=== PATIENT | female | born 1970 | race African-American/Black ===

== ENCOUNTER 2020-12-13 08:32 | Emergency (ER) | payer OTHER, SELFPAY ==
--- NOTE | 2020-12-13 09:15 | EDPHYS ---
Physician Documentation [facility] Name: Nimo Kinsey Age: 50 yrs Sex: Female : 1970 Arrival Date: 12/13/2020 Time: 08:33 Bed 27 Private MD: ED Physician Anabela Zarco HPI: 12/13 09:12 This 50 yrs old Black Female presents to ER via Ambulatory with complaints of Numbness ma2 - left side, lightheaded. 09:12 This 50 yrs old Black Female presents to ER via Ambulatory with complaints of left ma2 sided upper and lower back pain and left neck pain . 09:12 Onset: The symptoms/episode began/occurred gradually, 1 day(s) ago. Associated signs ma2 and symptoms: Pertinent negatives: abdominal pain, agitation, ataxia, blurred vision, chest pain, confusion, diaphoresis, diarrhea, lightheadedness. Severity of symptoms: At their worst the symptoms were mild in the emergency department the symptoms have improved. The patient has experienced similar episodes in the past. 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 - Social history:: Smoking status: Patient reports the use of cigarette tobacco products, smokes one-half pack cigarettes per day. - Family history:: not pertinent. ROS: 09:12 Constitutional: Negative for fever, chills, and weight loss. ma2 09:12 All other systems are negative. Exam: 09:12 Constitutional: This is a well developed, well nourished patient who is awake, alert, ma2 and in no acute distress. Head/Face: Normocephalic, atraumatic. Eyes: Pupils equal round and reactive to light, extra-ocular motions intact. Lids and lashes normal. Conjunctiva and sclera are non-icteric and not injected. Cornea within normal limits. Periorbital areas with no swelling, redness, or edema. ENT: Nares patent. No nasal discharge, no septal abnormalities noted. Tympanic membranes are normal and external auditory canals are clear. Oropharynx with no redness, swelling, or masses, exudates, or evidence of obstruction, uvula midline. Mucous membranes moist. Neck: Has left lateral muscle neck tenderness, and strain, otherwise trachea midline, no thyromegaly or masses palpated, and no cervical lymphadenopathy. Supple, full range of motion without nuchal rigidity, or vertebral point tenderness. No Meningismus. Chest/axilla: Normal chest wall appearance and motion. Nontender with no deformity. No lesions are appreciated. Cardiovascular: Regular rate and rhythm with a normal S1 and S2. No gallops, murmurs, or rubs. Normal PMI, no JVD. No pulse deficits. Respiratory: Lungs have equal breath sounds bilaterally, clear to auscultation and percussion. No rales, rhonchi or wheezes noted. No increased work of breathing, no retractions or nasal flaring. Abdomen/GI: Soft, non-tender, with normal bowel sounds. No distension or tympany. No guarding or rebound. No evidence of tenderness throughout. Back: Has left paraspinal muscle strain and tenderness, no spinal tenderness. No costovertebral tenderness. Full range of motion. Skin: Warm, dry with normal turgor. Normal color with no rashes, no lesions, and no evidence of cellulitis. MS/ Extremity: Pulses equal, no cyanosis. Neurovascular intact. Full, normal range of motion. Neuro: Awake and alert, GCS 15, oriented to person, place, time, and situation. Cranial nerves II-XII grossly intact. Motor strength 5/5 in all extremities. Sensory grossly intact. Cerebellar exam normal. Normal gait. 09:15 CT study not indicated or reported. Reason for not performing CT: patient has muscle ma2 sprain Vital Signs: 08:58 BP 137 / 98; Pulse 98; Resp 16; Temp 98.0; Pulse Ox 100% on R/A; Weight 111.13 kg; iw Height 5 ft. 3 in. (160.02 cm); 08:58 Body Mass Index 43.40 (111.13 kg, 160.02 cm) iw MDM: 09:06 Patient medically screened. ma2 09:12 Differential diagnosis: Likely muscle sprain, strain, of neck upper back and lower ma2 back, with point tenderness. Data reviewed: vital signs, nurses notes. Counseling: I had a detailed discussion with the patient and/or guardian regarding: the historical points, exam findings, and any diagnostic results supporting the discharge/admit diagnosis, the presence of at least one elevated blood pressure reading (>120/80) during this emergency department visit, the need for outpatient follow up. Response to treatment: the patient's symptoms have markedly improved after treatment. Administered Medications: 09:44 Drug: Ketorolac 60 mg Route: IM; Site: right gluteus; ss Disposition Summary: 12/13/20 09:15 Discharge Ordered Location: Home ma2 Condition: Stable ma2 Diagnosis - Muscle spasm of back ma2 - Other muscle spasm - left neck ma2 Followup: ma2 - With: Private Physician - When: Tomorrow - Reason: If symptoms return, Continuance of care Discharge Instructions: - Discharge Summary Sheet ma2 - Muscle Cramps and Spasms ma2 - Heat Therapy, [id number] ma2 - Back Injury Prevention ma2 Forms: - Medication Reconciliation Form ma2 - Thank You Letter ma2 - Antibiotic Education ma2 - Prescription Opioid Use ma2 - Work release form eb Prescriptions: - Cyclobenzaprine 10 mg Oral Tablet - take 1 tablet by ORAL route every 8 hours As needed; 30 tablet; Refills: 0, ma2 Product Selection Permitted - Diclofenac Sodium 75 mg Oral Tablet Sustained Release - take 1 tablet by ORAL route 2 times per day; 30 tablet; Refills: 0, Product ma2 Selection Permitted Signatures: Natalie Sierra RN RN Kimmie Leach RN RN ss Alzahri, Mohammad, MD MD ma2
--- NOTE | 2020-12-13 09:15 | ER ---
Nurse's Notes [facility] Name: Nimo Kinsey Age: 50 yrs Sex: Female : 1970 Arrival Date: 12/13/2020 Time: 08:33 Bed 27 Private MD: Diagnosis: Muscle spasm of back;Other muscle spasm-left neck Presentation: 12/13 08:58 Chief complaint: Patient states: got off work at 6 am, laid in bed and got cold and iw then sat up and got dizzy and then her left side got numb, states she feels numbness from back of her neck down her left arm and down left leg , states she has some pain in neck and low back. Coronavirus screen: At this time, the client does not indicate any symptoms associated with coronavirus-19. Ebola Screen: Patient negative for fever greater than or equal to 101.5 degrees Fahrenheit, and additional compatible Ebola Virus Disease symptoms Patient denies exposure to infectious person. Patient denies travel to an Ebola-affected area in the 21 days before illness onset. No symptoms or risks identified at this time. Initial Sepsis Screen: Does the patient meet any 2 criteria? No. Patient's initial sepsis screen is negative. Does the patient have a suspected source of infection? No. Patient's initial sepsis screen is negative. Risk Assessment: Do you want to hurt yourself or someone else? Patient reports no desire to harm self or others. Onset of symptoms was December 13, 2020. 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 - Social history:: Smoking status: Patient reports the use of cigarette tobacco products, smokes one-half pack cigarettes per day. - Family history:: not pertinent. Screenin:45 Abuse screen: Denies threats or abuse. Denies injuries from another. Nutritional ss screening: No deficits noted. Tuberculosis screening: Never had TB. Fall Risk None identified. Vital Signs: 08:58 BP 137 / 98; Pulse 98; Resp 16; Temp 98.0; Pulse Ox 100% on R/A; Weight 111.13 kg; iw Height 5 ft. 3 in. (160.02 cm); 08:58 Body Mass Index 43.40 (111.13 kg, 160.02 cm) ED Course: 08:33 Patient arrived in ED. am2 09:01 Triage completed. iw 09:02 Arm band placed on. iw 09:06 Anabela Zarco MD is Attending Physician. ma2 09:37 Kimmie Leach, RN is Primary Nurse. ss 09:45 Patient has correct armband on for positive identification. Bed in low position. Call ss light in reach. Side rails up X 1. 09:45 No provider procedures requiring assistance completed. Patient did not have IV access ss during this emergency room visit. Administered Medications: 09:44 Drug: Ketorolac 60 mg Route: IM; Site: right gluteus; ss Outcome: 09:15 Discharge ordered by . ma2 10:13 Discharged to home ambulatory. ss 10:13 Condition: good 10:13 Discharge instructions given to patient, Instructed on discharge instructions, follow up and referral plans. medication usage, Demonstrated understanding of instructions, follow-up care, medications, Prescriptions given X 2. 10:13 Patient left the ED. ss Signatures: Natalie Sierra RN RN Kimmie Leach RN RN Marcela Romero am2 Anabela Zarco MD MD ma2
[2020-12-13] MEDS ORDERED: KETOROLAC 30 MG/ML INJ ONE (09:57)
[2020-12-13 10:24] VITALS: BP 137/98; TEMP 98; O2SAT 100
== END 2020-12-13 10:13 | disposition home or self-care (01) ==
LOC: ER 08:32
DX: M62.830 Muscle spasm of back (principal); M62.838 Other muscle spasm; F17.210 Nicotine dependence, cigarettes, uncomplicated; Z91.048 Other nonmedicinal substance allergy status
CPT/HCPCS: 96372; 99283

== ENCOUNTER 2021-06-20 15:26 | Emergency (ER) | payer BC, SELFPAY ==
[2021-06-20 17:46] LABS: SARS-COV-2 RT PCR NEGATIVE (NEGATIVE)
--- NOTE | 2021-06-20 18:15 | EDPHYS ---
Physician Documentation [facility] Name: Nimo Kinsey Age: 50 yrs Sex: Female : 1970 Arrival Date: 06/20/2021 Time: 15:31 Bed 12 Private MD: ISAIAH Physician Deshaun Rowe HPI: 06/20 17:51 This 50 yrs old Black Female presents to ER via Ambulatory with complaints of Cough, pm1 Body Aches. 17:51 The patient or guardian reports cough. Onset: The symptoms/episode began/occurred 2 pm1 day(s) ago. Severity of symptoms: in the emergency department the symptoms are unchanged. Modifying factors: The symptoms are alleviated by Tylenol, ibuprofen. Associated signs and symptoms: Pertinent positives: sore throat, bodyaches, nausea, Pertinent negatives: fever. 17:51 The patient has not experienced similar symptoms in the past. The patient has not pm1 recently seen a physician. 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 - Social history:: Smoking status: Patient reports the use of cigarette tobacco products, smokes one-half pack cigarettes per day. ROS: 17:51 Cardiovascular: Negative for chest pain, palpitations, and edema. pm1 17:51 Back: Negative for injury and pain, MS/Extremity: Negative for injury and deformity, Skin: Negative for injury, rash, and discoloration, Neuro: Negative for headache, weakness, numbness, tingling, and seizure. 17:51 Constitutional: Positive for body aches, Negative for fever, poor PO intake. 17:51 ENT: Positive for sore throat, Negative for ear pain. 17:51 Respiratory: Positive for cough, Negative for shortness of breath, wheezing. 17:51 Abdomen/GI: Positive for nausea, Negative for abdominal pain, vomiting, diarrhea, constipation. 17:51 All other systems are negative. Exam: 17:51 Constitutional: This is a well developed, well nourished patient who is awake, alert, pm1 and in no acute distress. Head/Face: Normocephalic, atraumatic. 17:51 Skin: Warm, dry with normal turgor. Normal color with no rashes, no lesions, and no evidence of cellulitis. MS/ Extremity: Pulses equal, no cyanosis. Neurovascular intact. Full, normal range of motion. 17:51 ENT: Exam is negative for acute changes, Nose: no acute changes, Mouth: no acute changes, Lips: normal, moist, Oral mucosa: normal, pink and intact, moist. 17:51 Cardiovascular: Rate: normal, Rhythm: regular, Pulses: no pulse deficits are appreciated. 17:51 Respiratory: Exam negative for acute changes, respiratory distress, shortness of breath. 17:51 Neuro: Exam negative for acute changes, Orientation: is normal, Mentation: is normal, Motor: is normal, moves all fours. Vital Signs: 16:37 BP 152 / 90; Pulse 94; Resp 20; Temp 98.2; Pulse Ox 100% ; Weight 120.2 kg; Height 5 vg1 ft. 3 in. (160.02 cm); Pain 8/10; 18:36 BP 132 / 77; Pulse 70; Resp 18; Pulse Ox 100% ; ll1 16:37 Body Mass Index 46.94 (120.20 kg, 160.02 cm) vg1 MDM: 17:43 Patient medically screened. pm1 18:14 Data reviewed: vital signs. Data interpreted: Pulse oximetry: on room air is 100 %. pm1 Interpretation: normal. Counseling: I had a detailed discussion with the patient and/or guardian regarding: the historical points, exam findings, and any diagnostic results supporting the discharge/admit diagnosis, lab results, radiology results, the need for outpatient follow up, to return to the emergency department if symptoms worsen or persist or if there are any questions or concerns that arise at home. 06/20 16:43 Order name: COVID-19/FLU A+B (Document "Date of Onset" if Symptomatic); Complete Time: vg1 17:50 06/20 16:43 Order name: Chest Single View XRAY; Complete Time: 18:27 vg1 Administered Medications: No medications were administered Disposition: 06/21 10:35 Co-signature as Attending Physician, Deshaun Rowe MD I agree with the assessment and radhika plan of care. Disposition Summary: 06/20/21 18:15 Discharge Ordered Location: Home pm1 Problem: new pm1 Symptoms: have improved pm1 Condition: Stable pm1 Diagnosis - Cough pm1 Followup: pm1 - With: Emergency Department - When: As needed - Reason: Worsening of condition Followup: pm1 - With: Private Physician - When: 2 - 3 days - Reason: Recheck today's complaints, Continuance of care, Re-evaluation by your physician Discharge Instructions: - Discharge Summary Sheet pm1 - Pharyngitis pm1 - Upper Respiratory Infection, Adult pm1 - COVID-19 pm1 - COVID-19: What Your Test Results Mean - [facility] pm1 - COVID-19 Frequently Asked Questions pm1 - 10 Things You Can Do to Manage Your COVID-19 Symptoms at Home - [facility] pm1 - COVID-19: Quarantine vs. Isolation - [facility] pm1 Forms: - Medication Reconciliation Form pm1 - Thank You Letter pm1 - Antibiotic Education pm1 - Prescription Opioid Use pm1 - Work release form ll1 Prescriptions: - Zithromax Z-Sreedhar 250 mg Oral Tablet - take 1 tablet by ORAL route as directed for 5 days Day 1 - take two (2) tablets pm1 one time. Day 2, 3, 4 , 5 take one (1) tablet once daily.; 6 tablet; Refills: 0, Product Selection Permitted - Guaifenesin AC 10-100 mg/5 mL Oral Liquid - take 10 milliliters by ORAL route every 4 hours As needed; 240 milliliter; pm1 Refills: 0, Product Selection Permitted - Zofran 4 mg Oral Tablet - take 1 tablet by ORAL route every 12 hours As needed; 20 tablet; Refills: 0, pm1 Product Selection Permitted Signatures: Dispatcher [employer] Deshaun Arellano MD MD cha Marinas, Patrick, MID LEVEL PROVIDER MID LEVEL PROVIDER pm1 Cathryn Edmonds, RN RN vg1 Corrections: (The following items were deleted from the chart) 06/20 18:20 18:15 Acute upper respiratory infection, unspecified pm1 pm1
--- NOTE | 2021-06-20 18:15 | ER ---
Nurse's Notes [facility] Name: Nimo Kinsey Age: 50 yrs Sex: Female : 1970 Arrival Date: 06/20/2021 Time: 15:31 Bed 12 Private MD: Diagnosis: Cough Presentation: 06/20 16:37 Chief complaint: Patient states: cough, congestion, headache and body aches x2 days; vg1 states 'covid outbreak at job in [employer]'. Coronavirus screen: Vaccine status: Patient reports receiving the 2nd dose of the covid vaccine. Client denies travel out of the [place] in the last 14 days. Ebola Screen: Patient negative for fever greater than or equal to 101.5 degrees Fahrenheit, and additional compatible Ebola Virus Disease symptoms. Initial Sepsis Screen: Does the patient meet any 2 criteria? No. Patient's initial sepsis screen is negative. Does the patient have a suspected source of infection? No. Patient's initial sepsis screen is negative. Risk Assessment: Do you want to hurt yourself or someone else? Patient reports no desire to harm self or others. Onset of symptoms was June 18, 2021. 16:37 Method Of Arrival: Ambulatory vg1 16:37 Acuity: TIFFANY 4 vg1 Triage Assessment: 16:40 General: Appears uncomfortable, Behavior is calm, cooperative. Pain: Complains of pain vg1 in generalized body. Respiratory: Reports cough that is Airway is patent Respiratory effort is even, unlabored. 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 - Social history:: Smoking status: Patient reports the use of cigarette tobacco products, smokes one-half pack cigarettes per day. Screenin:26 Abuse screen: Denies threats or abuse. Nutritional screening: No deficits noted. ll1 Tuberculosis screening: No symptoms or risk factors identified. Fall Risk Total Powell Fall Scale indicates No Risk (0-24 pts). Assessment: 17:26 Reassessment: No changes from previously documented assessment. Patient and/or family ll1 updated on plan of care and expected duration. Pain level reassessed. Patient is alert, oriented x 3, equal unlabored respirations, skin warm/dry/pink. 18:25 Reassessment: Patient appears in no apparent distress at this time. No changes from ll1 previously documented assessment. Patient and/or family updated on plan of care and expected duration. Pain level reassessed. Patient is alert, oriented x 3, equal unlabored respirations, skin warm/dry/pink. Vital Signs: 16:37 BP 152 / 90; Pulse 94; Resp 20; Temp 98.2; Pulse Ox 100% ; Weight 120.2 kg; Height 5 vg1 ft. 3 in. (160.02 cm); Pain 8/10; 18:36 BP 132 / 77; Pulse 70; Resp 18; Pulse Ox 100% ; ll1 16:37 Body Mass Index 46.94 (120.20 kg, 160.02 cm) vg1 ED Course: 15:31 Patient arrived in ED. ds1 16:40 Triage completed. vg1 16:40 Arm band placed on. vg1 16:45 COVID swab sent to lab. Flu and/or RSV swab sent to lab. vg1 17:18 Cathryn Edmonds, RN is Primary Nurse. vg1 17:18 Patient placed in an exam room, on a stretcher. vg1 17:19 Prabhjot Aguilar NP is PHCP. pm1 17:19 Deshaun Rowe MD is Attending Physician. pm1 17:27 Patient has correct armband on for positive identification. Bed in low position. Call ll1 light in reach. Cardiac monitoring not applicable on this patient. 17:28 Ute Godinez, JANET is Primary Nurse. ll1 17:38 Chest Single View XRAY In Process Unspecified. EDMS 18:37 No provider procedures requiring assistance completed. Patient did not have IV access ll1 during this emergency room visit. Administered Medications: No medications were administered Outcome: 18:15 Discharge ordered by . pm1 18:37 Discharged to home ambulatory. ll1 18:37 Condition: stable 18:37 Discharge instructions given to patient, Instructed on discharge instructions, follow up and referral plans. no drinking with medication, no driving heavy equipment, medication usage, Demonstrated understanding of instructions, follow-up care, medications, Prescriptions given X 3. 18:37 Patient left the ED. ll1 Signatures: Dispatcher [employer] EDNC Lawanda Last ds1 Prabhjot Aguilar NP WIRE REPAIRER [email or web address] Cathryn Edmonds RN RN vg1 Ute Godinez RN RN ll1
--- NOTE | 2021-06-20 18:24 | RAD REPORT ---
EXAM DESCRIPTION: RAD - Chest Single View - 06/20/2021 5:38 pm CLINICAL HISTORY: COUGH COMPARISON: Portable January 2009 TECHNIQUE: AP portable chest image was obtained 06/20/2021 5:38 pm . FINDINGS: Lung volumes are low which accentuates interstitial pattern. Under penetrated portable alejandro hnique and large body habitus further accentuates the lung pattern. No focal consolidation. No defini tive COVID-19 pneumonia findings seen. Interstitial edema and infiltrate are still possible. Heart an d vasculature are normal. No measurable pleural effusion and no pneumothorax. No acute bony abnormali ty seen. No acute aortic findings suspected. IMPRESSION: No focal mass or consolidation. Prominent interstitial pattern is mostly artifact. Mild interstitial edema or infiltrate are not excl uded. No specific chest film findings for COVID-19 pneumonia. Correlation can be made with testing.
[2021-06-20 19:31] VITALS: TEMP 98.2; O2SAT 100
[2021-06-20 19:33] VITALS: BP 132/77
== END 2021-06-20 18:37 | disposition home or self-care (01) ==
LOC: ER 15:26
DX: R05.9 Cough, unspecified (principal); Z20.822 Contact with and (suspected) exposure to COVID-19; F17.210 Nicotine dependence, cigarettes, uncomplicated
CPT/HCPCS: 0240U; 71045

== ENCOUNTER 2021-09-17 10:36 | Emergency (ER) | payer SELFPAY ==
[2021-09-17] MEDS ORDERED: ONDANSETRON 4 MG/2 ML VIAL ONE (11:16)
[2021-09-17] MEDS ORDERED: MORPHINE 4 MG/ML SYR ONE (11:16)
[2021-09-17 11:22] LABS: Absolute Lymphocytes (CBC) 2.1 K/uL (0.7-4.9); MPV 8.1 fL (7.6-11.3); RBC Red Blood Cell Count 4.53 M/uL (3.86-4.86)
[2021-09-17 11:32] LABS: Protime INR 0.97
[2021-09-17 11:44] LABS: Albumin 3.4 g/dL (3.4-5.0); Bilirubin Direct 0.2 mg/dL (0-0.2); Bilirubin Total 0.7 mg/dL (0.2-1.0); Magnesium 1.9 mg/dL (1.8-2.4); Potassium 3.4 mmol/L (3.5-5.1); Protein, Total 7.1 g/dL (6.4-8.2); Troponin High Sensitivity 3.7 pg/mL (<58.9)
[2021-09-17 12:50] LABS: SARS-COV-2 RT PCR NEGATIVE (NEGATIVE)
--- NOTE | 2021-09-17 13:10 | RAD REPORT ---
EXAM DESCRIPTION: Christopher Single View09/17/2021 1:00 pm CLINICAL HISTORY: Chest pain COMPARISON: May 2021 FINDINGS: The lungs appear clear of acute infiltrate. The heart is normal size IMPRESSION: No acute abnormalities displayed
--- NOTE | 2021-09-17 13:11 | RAD REPORT ---
EXAM DESCRIPTION: RAD - C Spine Ap/Lat - 09/17/2021 1:00 pm CLINICAL HISTORY: Neck pain FINDINGS: No fracture or dislocation is seen. Mild spondylosis involves mid and distal cervical spine
[2021-09-17] MEDS ORDERED: KETOROLAC 30 MG/ML INJ ONE (14:09)
[2021-09-17] MEDS ORDERED: DIAZEPAM 10 MG/2 ML INJ SYRINGE ONE (14:09)
--- NOTE | 2021-09-17 14:44 | ER ---
Nurse's Notes [facility] Name: Nimo Kinsey Age: 50 yrs Sex: Female : 1970 Arrival Date: 09/17/2021 Time: 10:41 Bed 27 Private MD: Diagnosis: Strain of muscle and tendon of back wall of thorax;Muscle spasm of back;Chest pain, unspecified Presentation: 09/17 10:53 Chief complaint: Patient states: i dont know if my muscles or nerves but the pain is iw from font of chest to left upper back and down left arm , started 3-4 days ago, denies injury, feels like it's pulling when she turns her neck. Coronavirus screen: At this time, the client does not indicate any symptoms associated with coronavirus-19. Ebola Screen: Patient negative for fever greater than or equal to 101.5 degrees Fahrenheit, and additional compatible Ebola Virus Disease symptoms Patient denies exposure to infectious person. Patient denies travel to an Ebola-affected area in the 21 days before illness onset. No symptoms or risks identified at this time. Initial Sepsis Screen: Does the patient meet any 2 criteria? No. Patient's initial sepsis screen is negative. Does the patient have a suspected source of infection? No. Patient's initial sepsis screen is negative. Risk Assessment: Do you want to hurt yourself or someone else? Patient reports no desire to harm self or others. Onset of symptoms was September 14, 2021. 10:53 Method Of Arrival: Ambulatory iw 10:53 Acuity: TIFFANY 3 iw Triage Assessment: 11:00 General: Appears in no apparent distress. uncomfortable, obese, Behavior is bp cooperative, appropriate for age, anxious. Pain: Complains of pain in chest. EENT: No deficits noted. Neuro: No deficits noted. Cardiovascular: Rhythm is sinus rhythm. Respiratory: No deficits noted. GI: No signs and/or symptoms were reported involving the gastrointestinal system. : No signs and/or symptoms were reported regarding the genitourinary system. Derm: No deficits noted. Musculoskeletal: No deficits noted. Historical: - Allergies: 10:55 Iodine; iw - PMHx: 10:55 graves disease; iw - PSHx: 10:55 section; Tonsillectomy; iw - Immunization history:: Client reports receiving the 2nd dose of the Covid vaccine. - Social history:: Smoking status: Patient reports the use of cigarette tobacco products, Smoking status: Patient reports the use of cigarette tobacco products, smokes one-half pack cigarettes per day. Screenin:00 Abuse screen: Denies threats or abuse. Denies injuries from another. Nutritional bp screening: No deficits noted. Tuberculosis screening: No symptoms or risk factors identified. Fall Risk None identified. Assessment: 11:00 General: SEE TRIAGE NOTE. bp 12:19 Reassessment: No changes from previously documented assessment. Patient and/or family bp updated on plan of care and expected duration. Pain level reassessed. 13:10 Reassessment: No changes from previously documented assessment. Patient and/or family bp updated on plan of care and expected duration. Pain level reassessed. 15:09 Reassessment: PT D/C HOME AMBULATORY WITH FAMILY, DX WITH MUSCLE STRAIN. Pain: Denies bp pain. Vital Signs: 10:53 BP 139 / 99; Pulse 86; Resp 16; Temp 98.2; Pulse Ox 100% on R/A; Weight 113.4 kg; iw Height 5 ft. 3 in. (160.02 cm); Pain 10/10; 11:40 BP 124 / 100; Pulse 84; Resp 19; Pulse Ox 100% on R/A; ab2 12:19 BP 129 / 94; Pulse 77; Resp 16; Pulse Ox 99% ; bp 13:10 BP 117 / 90; Pulse 73; Resp 24; Pulse Ox 97% ; bp 15:09 BP 115 / 88; Pulse 76; Resp 15; Pulse Ox 100% ; bp 10:53 Body Mass Index 44.29 (113.40 kg, 160.02 cm) ED Course: 10:41 Patient arrived in ED. am2 10:55 Triage completed. iw 10:55 Arm band placed on. iw 10:56 Harvey Ac PA is PHCP. [facility] 10:56 Percy Pavon MD is Attending Physician. [facility] 11:00 Patient has correct armband on for positive identification. Bed in low position. Call bp light in reach. Side rails up X2. quality assurance monitor chassis on. Pulse ox on. NIBP on. 11:03 Aaron South, JANET is Primary Nurse. bp 11:13 Inserted saline lock: 20 gauge in left antecubital area, using aseptic technique. Blood tp1 collected. 11:13 EKG done, by ED staff. tp1 13:02 XRAY Chest (1 view) In Process Unspecified. EDMS 13:02 C Spine Ap/Lat XRAY In Process Unspecified. EDMS 14:42 Steve Shields MD is Referral Physician. jmm 15:10 No provider procedures requiring assistance completed. IV discontinued, intact, bp bleeding controlled, No redness/swelling at site. Pressure dressing applied. 15:10 Patient maintains SpO2 saturation greater than 95% on room air. bp Administered Medications: 11:16 Drug: morphine 4 mg Route: IVP; Site: left antecubital; bp 13:01 Follow up: Response: Pain is decreased bp 11:17 Drug: Zofran (Ondansetron) 4 mg Route: IVP; Site: left antecubital; bp 13:01 Follow up: Response: No adverse reaction bp 14:05 Drug: Ketorolac 30 mg Route: IVP; Site: left antecubital; bp 15:11 Follow up: Response: No adverse reaction; Pain is decreased bp 14:05 Drug: Valium (diazepam) 5 mg Route: IVP; Site: left antecubital; bp 15:12 Follow up: Response: No adverse reaction; Pain is decreased bp Outcome: 14:43 Discharge ordered by MD. jmm 15:10 Discharged to home ambulatory, with family. bp 15:10 Condition: stable 15:10 Discharge instructions given to patient, Instructed on discharge instructions, follow up and referral plans. medication usage, Demonstrated understanding of instructions, follow-up care, medications, Prescriptions given X 2. 15:12 Patient left the ED. bp Signatures: Dispatcher [employer] EDMS Harvey Ac PA PA jmNatalie Thurman, RN RN Marcela Olson am2 Aaron South RN RN Sarah Leiva tp1 Jose Martínez
--- NOTE | 2021-09-17 14:44 | EDPHYS ---
Physician Documentation [facility] Name: Nimo Kinsey Age: 50 yrs Sex: Female : 1970 Arrival Date: 09/17/2021 Time: 10:41 Bed 27 Private MD: ED Physician Percy Pavon HPI: 09/17 14:43 This 50 yrs old Black Female presents to ER via Ambulatory with complaints of Chest jmm Pain - radiating to left arm. 14:43 The patient or guardian complains of pain. Onset: The symptoms/episode began/occurred jmm gradually, 3 day(s) ago. This is a 50-year-old female with history of Graves' disease the presents emerged department with complaints of left trapezius pain which radiates into the left arm and the chest. Patient states symptoms began approximately 3 days ago. Denies injury. Denies shortness of breath. Pain is worse when she moves left shoulder. Historical: - Allergies: 10:55 Iodine; iw - PMHx: 10:55 graves disease; iw - PSHx: 10:55 section; Tonsillectomy; iw - Immunization history:: Client reports receiving the 2nd dose of the Covid vaccine. - Social history:: Smoking status: Patient reports the use of cigarette tobacco products, Smoking status: Patient reports the use of cigarette tobacco products, smokes one-half pack cigarettes per day. ROS: 14:43 Respiratory: Negative for shortness of breath, cough, wheezing, and pleuritic chest jmm pain. 14:43 Cardiovascular: Positive for chest pain. 14:43 MS/extremity: Positive for pain. 14:43 All other systems are negative. Exam: 14:43 Constitutional: This is a well developed, well nourished patient who is awake, alert, jmm and in no acute distress. Head/Face: atraumatic. Eyes: EOMI, no conjunctival erythema appreciated ENT: Moist Mucus Membranes Neck: Trachea midline, Supple Chest/axilla: Normal chest wall appearance and motion. 14:43 Cardiovascular: Rate: normal, Rhythm: regular. 14:43 Respiratory: the patient does not display signs of respiratory distress, Respirations: normal, Breath sounds: are clear throughout. 14:43 Back: Left trapezius pain on palpation, mild swelling is appreciated. 14:43 Musculoskeletal/extremity: ROM: intact in all extremities. 14:43 Skin: Appearance: Color: normal in color. 14:43 Neuro: Motor: is normal. 14:43 Psych: Behavior/mood is pleasant, cooperative. Vital Signs: 10:53 BP 139 / 99; Pulse 86; Resp 16; Temp 98.2; Pulse Ox 100% on R/A; Weight 113.4 kg; iw Height 5 ft. 3 in. (160.02 cm); Pain 10/10; 11:40 BP 124 / 100; Pulse 84; Resp 19; Pulse Ox 100% on R/A; ab2 12:19 BP 129 / 94; Pulse 77; Resp 16; Pulse Ox 99% ; bp 13:10 BP 117 / 90; Pulse 73; Resp 24; Pulse Ox 97% ; bp 15:09 BP 115 / 88; Pulse 76; Resp 15; Pulse Ox 100% ; bp 10:53 Body Mass Index 44.29 (113.40 kg, 160.02 cm) iw MDM: 11:07 Patient medically screened. guevara 14:42 Data reviewed: vital signs, nurses notes. Counseling: I had a detailed discussion with indra the patient and/or guardian regarding: the historical points, exam findings, and any diagnostic results supporting the discharge/admit diagnosis, lab results, radiology results, the need for outpatient follow up, to return to the emergency department if symptoms worsen or persist or if there are any questions or concerns that arise at home. 09/17 11:08 Order name: Basic Metabolic Panel; Complete Time: 12:00 [facility] 09/17 11:08 Order name: CBC with Diff; Complete Time: 11:53 [facility] 09/17 11:08 Order name: LFT's; Complete Time: 12:00 [facility] 09/17 11:08 Order name: Magnesium; Complete Time: 12:00 [facility] 09/17 11:08 Order name: NT PRO-BNP; Complete Time: 12:00 [facility] 09/17 11:08 Order name: PT-INR; Complete Time: 11:36 [facility] 09/17 11:08 Order name: Troponin HS; Complete Time: 12:00 [facility] 09/17 11:08 Order name: XRAY Chest (1 view); Complete Time: 13:15 [facility] 09/17 11:15 Order name: C Spine Ap/Lat XRAY; Complete Time: 13:15 [facility] 09/17 11:42 Order name: COVID-19/FLU A+B (Document "Date of Onset" if Symptomatic); Complete Time: iw 13:09/17 11:08 Order name: EKG; Complete Time: 11: [facility] 09/17 11:08 Order name: Cardiac monitoring; Complete Time: 11:10 [facility] 09/17 11:08 Order name: EKG - Nurse/Tech; Complete Time: 11: [facility] 09/17 11:08 Order name: IV Saline Lock; Complete Time: 11: [facility] 09/17 11:08 Order name: Labs collected and sent; Complete Time: 11: [facility] 09/17 11:08 Order name: O2 Per Protocol; Complete Time: : [facility] 09/17 11:08 Order name: O2 Sat Monitoring; Complete Time: 11:10 [facility] Administered Medications: 11:16 Drug: morphine 4 mg Route: IVP; Site: left antecubital; bp 13:01 Follow up: Response: Pain is decreased bp 11:17 Drug: Zofran (Ondansetron) 4 mg Route: IVP; Site: left antecubital; bp 13:01 Follow up: Response: No adverse reaction bp 14:05 Drug: Ketorolac 30 mg Route: IVP; Site: left antecubital; bp 15:11 Follow up: Response: No adverse reaction; Pain is decreased bp 14:05 Drug: Valium (diazepam) 5 mg Route: IVP; Site: left antecubital; bp 15:12 Follow up: Response: No adverse reaction; Pain is decreased bp Disposition Summary: 09/17/21 14:43 Discharge Ordered Location: Home jmm Condition: Stable jmm Diagnosis - Strain of muscle and tendon of back wall of thorax jmm - Muscle spasm of back jmm - Chest pain, unspecified jmm Followup: [facility] - With: Steve Shields MD - When: 2 - 3 days - Reason: Recheck today's complaints, Continuance of care, Re-evaluation by your physician Discharge Instructions: - Discharge Summary Sheet jmm - Nonspecific Chest Pain, Adult jmm - Muscle Cramps and Spasms jmm - Thoracic Strain jmm Forms: - Medication Reconciliation Form jmm - Thank You Letter jmm - Antibiotic Education jmm - Prescription Opioid Use jmm Prescriptions: - Zanaflex 4 mg Oral Tablet - take 1 tablet by ORAL route every 8 hours As needed; 20 tablet; Refills: 0, [facility] Product Selection Permitted - Diclofenac Sodium 75 mg Oral Tablet Sustained Release - take 1 tablet by ORAL route 2 times per day; 30 tablet; Refills: 0, Product [facility] Selection Permitted Addendum: 09/18/2021 15:38 Co-signature as Attending Physician, Percy Pavon MD I agree with the assessment and k plan of care. Signatures: Dispatcher [employer] [facility] Percy Pavon MD MD [facility] Harvey Ac PA PA jmm Williams, Irene, RN RN iw Aaron South RN RN bp
[2021-09-17 16:07] VITALS: TEMP 98.2
[2021-09-17 16:12] VITALS: BP 115/88; O2SAT 100
== END 2021-09-17 15:12 | disposition home or self-care (01) ==
LOC: ER 10:36
DX: S29.012A Strain of muscle and tendon of back wall of thorax, initial encounter (principal); M62.830 Muscle spasm of back; F17.210 Nicotine dependence, cigarettes, uncomplicated; Z20.822 Contact with and (suspected) exposure to COVID-19; Z91.048 Other nonmedicinal substance allergy status
CPT/HCPCS: 0240U; 36415; 71045; 72040; 80048; 80076; 83735; 83880; 84484; 85025; 85610; 93005; 96374; 96375; 99285; J2405; J3360

== ENCOUNTER 2022-02-20 10:30 | Emergency (ER) | payer SELFPAY ==
[2022-02-20] MEDS ORDERED: dexAMETHasone 10 MG/ML VIAL ONE (11:43)
--- NOTE | 2022-02-20 12:23 | EDPHYS ---
Physician Documentation [facility] Name: Nimo Kinsey Age: 51 yrs Sex: Female : 1970 Arrival Date: 02/20/2022 Time: 10:41 Bed 11 Private MD: Deshaun Zambrano HPI: 02/20 10:48 This 51 yrs old Black Female presents to ER via Ambulatory with complaints of jmm bodyaches, Congestion, Shortness Of Breath. 10:48 The patient or guardian reports cough. Onset: The symptoms/episode began/occurred jmm gradually, 3 day(s) ago. Modifying factors: The symptoms are alleviated by nothing. the symptoms are aggravated by nothing. Associated signs and symptoms: Pertinent positives: sore throat. It is unknown whether or not the patient has had similar symptoms in the past. 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 - Social history:: Smoking status: Patient reports the use of cigarette tobacco products, smokes one pack cigarettes per day. ROS: 10:48 Constitutional: Positive for body aches, chills. jmm 10:48 ENT: Positive for sore throat. 10:48 Respiratory: Positive for cough. 10:48 All other systems are negative. Exam: 10:48 Constitutional: This is a well developed, well nourished patient who is awake, alert, jmm and in no acute distress. Head/Face: atraumatic. Eyes: EOMI, no conjunctival erythema appreciated 10:48 Neck: Trachea midline, Supple Chest/axilla: Normal chest wall appearance and motion. Cardiovascular: Regular rate and rhythm. No edema appreciated Respiratory: Normal respirations, no respiratory distress appreciated Abdomen/GI: Non distended Back: Normal ROM Skin: General appearance color normal MS/ Extremity: Moves all extremities, no obvious deformities appreciated, no edema noted to the lower extremities Neuro: Awake and alert Psych: Behavior is normal, Mood is normal, Patient is cooperative and pleasant 10:48 ENT: Posterior pharynx: erythema, that is moderate. Vital Signs: 10:46 BP 148 / 95; Pulse 71; Resp 17; Temp 98.2; Pulse Ox 99% ; Weight 129.27 kg; Height 5 [facility] ft. 3 in. (160.02 cm); Pain 7/10; 12:43 BP 154 / 88; Pulse 77; Resp 16; Pulse Ox 99% on R/A; tp1 10:46 Body Mass Index 50.48 (129.27 kg, 160.02 cm) [facility] MDM: 11:02 Patient medically screened. [facility] 12:21 Data reviewed: vital signs, nurses notes. Counseling: I had a detailed discussion with indra the patient and/or guardian regarding: the historical points, exam findings, and any diagnostic results supporting the discharge/admit diagnosis, lab results, the need for outpatient follow up, to return to the emergency department if symptoms worsen or persist or if there are any questions or concerns that arise at home. ED course: Patient is alert nontoxic in appearance NAD. No signs respiratory distress. Patient advised follow-up PCP and otherwise given strict return precautions. Patient understood agrees plan of care.. 02/20 10:47 Order name: Influenza Screen (a \\T\\ B) [facility] 02/20 10:47 Order name: Strep [facility] 02/20 10:47 Order name: SARS-COV-2 RT PCR (Document "Date of Onset" if Symptomatic) [facility] 02/20 11:32 Order name: Influenza Screen (A ; Complete Time: 11:34 [facility] 02/20 11:33 Order name: Group A Streptococcus Rapid Sc; Complete Time: 11:34 [facility] 02/20 11:38 Order name: SARS-COV-2 RT PCR; Complete Time: 11:46 EDMS Administered Medications: 11:47 Drug: Decadron (dexamethasone) 10 mg Route: IM; Site: left deltoid; jl7 Disposition Summary: 02/20/22 12:23 Discharge Ordered Location: Home [facility] Condition: Stable guevara Diagnosis - Acute pharyngitis, unspecified guevara Followup: indra - With: Private Physician - When: 2 - 3 days - Reason: Recheck today's complaints, Continuance of care, Re-evaluation by your physician Discharge Instructions: - Discharge Summary Sheet indra - Pharyngitis [facility] Forms: - Medication Reconciliation Form jmm - Thank You Letter jmm - Antibiotic Education jmm - Prescription Opioid Use jmm - Work release form tp1 Prescriptions: - cefdinir 300 mg Oral capsule - take 1 capsule by ORAL route every 12 hours for 10 days; 20 capsule; Refills: jmm 0, Product Selection Permitted - albuterol sulfate 90 mcg/actuation Inhalation HFA aerosol inhaler - inhale 2 puff by INHALATION route every 4-6 hours; 1 Pump; Refills: 0, Product jm Selection Permitted Signatures: Dispatcher [employer] Harvey Peraza PA PA jmm Leal, Jahala, RN RN jl7
--- NOTE | 2022-02-20 12:23 | ER ---
Nurse's Notes [facility] Name: Nimo Kinsey Age: 51 yrs Sex: Female : 1970 Arrival Date: 02/20/2022 Time: 10:41 Bed 11 Private MD: Diagnosis: Acute pharyngitis, unspecified Presentation: 02/20 10:46 Chief complaint: Patient states: Cough, severe sore throat, body aches, nasal jl7 congestion x 1.5 weeks, denies fever, denies N/V/D. Coronavirus screen: Vaccine status: Patient reports receiving the 2nd dose of the covid vaccine. congestion, cough unrelated to allergies, headache, runny nose, sore throat, Client presents with at least one sign or symptom that may indicate coronavirus-19. Standard/surgical mask placed on the client. Provider contacted for isolation considerations. Ebola Screen: No symptoms or risks identified at this time. Initial Sepsis Screen: Does the patient meet any 2 criteria? No. Patient's initial sepsis screen is negative. Does the patient have a suspected source of infection? No. Patient's initial sepsis screen is negative. Risk Assessment: Do you want to hurt yourself or someone else? Patient reports no desire to harm self or others. Onset of symptoms was February 08, 2022. 10:46 Method Of Arrival: Ambulatory jl7 10:46 Acuity: TIFFANY 4 jl7 Triage Assessment: 10:49 General: Appears in no apparent distress. uncomfortable, Behavior is calm, cooperative, jl7 appropriate for age. Pain: Complains of pain in throat Pain currently is 7 out of 10 on a pain scale. Respiratory: Reports cough that is dry, persistent Airway is patent Respiratory effort is even, unlabored, Respiratory pattern is regular, symmetrical, not auscultated in triage. 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 - Social history:: Smoking status: Patient reports the use of cigarette tobacco products, smokes one pack cigarettes per day. Vital Signs: 10:46 BP 148 / 95; Pulse 71; Resp 17; Temp 98.2; Pulse Ox 99% ; Weight 129.27 kg; Height 5 jl7 ft. 3 in. (160.02 cm); Pain 7/10; 12:43 BP 154 / 88; Pulse 77; Resp 16; Pulse Ox 99% on R/A; tp1 10:46 Body Mass Index 50.48 (129.27 kg, 160.02 cm) 7 ED Course: 10:41 Patient arrived in ED. am2 10:45 Harvey Ac PA is PHCP. [facility] 10:45 Deshaun Rowe MD is Attending Physician. [facility] 10:49 Triage completed. jl7 10:49 Arm band placed on right wrist. jl7 11:33 Te Gale, RN is Primary Nurse. jl7 12:46 No provider procedures requiring assistance completed. Patient did not have IV access tp1 during this emergency room visit. Administered Medications: 11:47 Drug: Decadron (dexamethasone) 10 mg Route: IM; Site: left deltoid; jl7 Medication: 12:46 VIS not applicable for this client. tp1 Outcome: 12:23 Discharge ordered by . [facility] 12:45 Discharged to tp1 12:45 Condition: good 12:45 Discharge instructions given to patient, Instructed on discharge instructions, follow up and referral plans. medication usage, Demonstrated understanding of instructions, follow-up care, medications, Prescriptions given X 2. 12:46 Patient left the ED. tp1 Signatures: Harvey Ac PA PA jmm Leal, Jahala, JANET RN jl7 Marcela Romero am2 Sarah Terrell RN RN tp1
[2022-02-20 12:59] VITALS: TEMP 98.2; O2SAT 99
[2022-02-20 13:00] VITALS: BP 154/88
== END 2022-02-20 12:46 | disposition home or self-care (01) ==
LOC: ER 10:30
DX: J02.9 Acute pharyngitis, unspecified (principal); E05.00 Thyrotoxicosis with diffuse goiter without thyrotoxic crisis or storm; F17.210 Nicotine dependence, cigarettes, uncomplicated; Z91.041 Radiographic dye allergy status; Z20.822 Contact with and (suspected) exposure to COVID-19
CPT/HCPCS: 87070; 87081; 87804; 96372; 99283; J1100; U0003

== ENCOUNTER 2022-04-12 15:21 | Emergency (ER) | payer OTHER ==
[2022-04-12] MEDS ORDERED: IBUPROFEN 400 MG TAB ONE (15:47)
[2022-04-12] MEDS ORDERED: ACETAMINOPHEN 500 MG TAB ONE (15:47)
--- NOTE | 2022-04-12 16:27 | RAD REPORT ---
EXAM DESCRIPTION: US - Extremity Venous Uni Ltd - 04/12/2022 4:20 pm CLINICAL HISTORY: Pain COMPARISON: None. TECHNIQUE: Real-time sonographic evaluation of the left lower extremity deep venous system was perfo rmed. FINDINGS: Normal compressibility, flow augmentation, phasic flow and spontaneous flow is identified in the left lower extremity deep venous system. No intraluminal filling defects seen. IMPRESSION: No DVT in the left lower extremity.
--- NOTE | 2022-04-12 17:53 | RAD REPORT ---
EXAM DESCRIPTION: RAD - Knee Left 3 View - 04/12/2022 5:22 pm CLINICAL HISTORY: PAIN COMPARISON: No comparisons FINDINGS/IMPRESSION: No acute fracture. No malalignment. Mild medial compartment narrowing. Minimal patellofemoral compartment spurring.
--- NOTE | 2022-04-12 18:04 | ER ---
Nurse's Notes [facility] Name: Nimo Kinsey Age: 51 yrs Sex: Female : 1970 Arrival Date: 04/12/2022 Time: 15:25 Bed 12 Private MD: Diagnosis: Pain in left knee;Unspecified acute conjunctivitis, bilateral Presentation: 04/12 15:35 Chief complaint: Patient states: Left knee pain X 1 month - denies injury. Woke up with ld1 pink eye in both eyes. Coronavirus screen: At this time, the client does not indicate any symptoms associated with coronavirus-19. Ebola Screen: No symptoms or risks identified at this time. Initial Sepsis Screen: Does the patient meet any 2 criteria? No. Patient's initial sepsis screen is negative. Does the patient have a suspected source of infection? No. Patient's initial sepsis screen is negative. Risk Assessment: Do you want to hurt yourself or someone else? Patient reports no desire to harm self or others. Onset of symptoms was April 12, 2022. 15:35 Method Of Arrival: Ambulatory ld1 15:35 Acuity: TIFFANY 4 ld1 Triage Assessment: 15:36 General: Appears in no apparent distress. comfortable, Behavior is calm, cooperative, ld1 appropriate for age. Pain: Complains of pain in left knee Pain does not radiate. Pain currently is 8 out of 10 on a pain scale. Quality of pain is described as throbbing, Pain began 1 day ago. EENT: No signs and/or symptoms were reported regarding the EENT system. EENT: Reports pain in right eye and left eye. Neuro: Level of Consciousness is awake, alert, obeys commands, Oriented to person, place, time, situation. Cardiovascular: Capillary refill < 3 seconds Patient's skin is warm and dry. Respiratory: Airway is patent Respiratory effort is even, unlabored. GI: Abdomen is round non-distended. : No signs and/or symptoms were reported regarding the genitourinary system. Derm: No signs and/or symptoms reported regarding the dermatologic system. Musculoskeletal: No signs and/or symptoms reported regarding the musculoskeletal system. 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 - Social history:: Smoking status: Patient reports the use of cigarette tobacco products, smokes one-half pack cigarettes per day, Patient/guardian denies using alcohol. Screenin:40 Abuse screen: Denies threats or abuse. Denies injuries from another. Nutritional kb3 screening: No deficits noted. Tuberculosis screening: No symptoms or risk factors identified. Fall Risk None identified. Assessment: 15:40 Reassessment: Patient appears in no apparent distress at this time. General: Appears in kb3 no apparent distress. Behavior is calm, cooperative, Re[facility] care of pt [facility]. Pt reports left knee pain x1 month without injury. Also reporting bilateral eye pain, burning, excessive tearing, itching.. Pain: Complains of pain in left knee Pain does not radiate. Pain currently is 7 out of 10 on a pain scale. Quality of pain is described as aching, Pain began 1 month. EENT: Eyes are tearing on right eye and left eye Sclera/Cornea are reddened in right eye and left eye. Vital Signs: 15:35 Weight 120.2 kg; Height 5 ft. 3 in. (160.02 cm); Pain 8/10; ld1 15:40 BP 162 / 107; Pulse 90; Resp 20; Temp 97.6; Pulse Ox 100% ; Pain 7/10; kb3 18:45 BP 158 / 95; Pulse 88; Resp 20; Pulse Ox 99% ; kb3 15:35 Body Mass Index 46.94 (120.20 kg, 160.02 cm) ld1 Visual Acuity: 17:37 Left Eye Visual acuity 20/25, Pupil size 4 mm, Normal, Brisk; Right Eye Visual acuity kb3 20/20, Pupil size 4 mm, Normal, Brisk; Both Eyes Visual acuity 20/15; With Lenses; ED Course: 15:25 Patient arrived in ED. rg4 15:31 Deshaun Perez PA is PHCP. cp 15:31 Chi Thompson MD is Attending Physician. cp 15:33 Stephany Rodriguez RN is Primary Nurse. kb3 15:36 Triage completed. ld1 15:36 Arm band placed on right wrist. ld1 15:40 Patient has correct armband on for positive identification. Bed in low position. Call kb3 light in reach. 15:40 No provider procedures requiring assistance completed. Patient did not have IV access kb3 during this emergency room visit. 16:22 US Extremity Venous Unilateral Ltd In Process Unspecified. EDMS 17:24 XRAY Knee LEFT 3 view In Process Unspecified. EDMS 18:03 Donald Angelo MD is Referral Physician. cp Administered Medications: 15:48 Drug: Ibuprofen 800 mg Route: PO; kb3 17:00 Follow up: Response: No adverse reaction; Pain is decreased kb3 15:48 Drug: Tylenol 1000 mg Route: PO; kb3 17:00 Follow up: Response: No adverse reaction; Pain is decreased kb3 18:20 Drug: Gentamicin Drops 0.3 % 1 drops Route: Ophthalmic; Site: both eyes; kb3 18:30 Follow up: Response: No adverse reaction kb3 Medication: 15:40 VIS not applicable for this client. kb3 Outcome: 18:04 Discharge ordered by . cp 18:49 Discharged to home ambulatory. kb3 18:49 Condition: stable 18:49 Discharge instructions given to patient, Instructed on discharge instructions, follow up and referral plans. medication usage, Demonstrated understanding of instructions, follow-up care, medications, Prescriptions given X 2. 18:50 Patient left the ED. kb3 Signatures: Dispatcher [employer] EDCT Deshaun Perez PA PA cp Garcia, Rubi rg4 Nery Melgoza RN RN ld1 Stephany Rodriguez RN RN kb3
--- NOTE | 2022-04-12 18:04 | EDPHYS ---
Physician Documentation [facility] Name: Nimo Kinsey Age: 51 yrs Sex: Female : 1970 Arrival Date: 04/12/2022 Time: 15:25 Bed 12 Private MD: ED Physician Chi Thompson HPI: 04/12 15:50 This 51 yrs old Black Female presents to ER via Ambulatory with complaints of Knee cp Pain, Redness of Eye. 15:50 The patient presents with pain, that is acute. cp 15:50 The complaints affect the left knee. Context: resulted from an unknown cause, the cp patient can fully bear weight, the patient is able to ambulate, with moderate difficulty, Problem is a result from a previous injury: No. Onset: The symptoms/episode began/occurred 1 month(s) ago. Modifying factors: the symptoms are aggravated by weight bearing, bending knee. Associated signs and symptoms: Pertinent positives: calf tenderness, swelling, radiating pain above knee and pain to back of knee, Pertinent negatives fever, warmth. Patient also c/o bilateral eye redness and drainage since this morning. C/o feeling of "grit" in eyes. 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 - Social history:: Smoking status: Patient reports the use of cigarette tobacco products, smokes one-half pack cigarettes per day, Patient/guardian denies using alcohol. ROS: 15:55 Constitutional: Negative for body aches, chills, fever, poor PO intake. cp 15:55 Eyes: Positive for discharge, pain, redness, Negative for injury or acute deformity. cp 15:55 ENT: Negative for drainage from ear(s), ear pain, sore throat, difficulty swallowing, difficulty handling secretions. 15:55 Cardiovascular: Negative for chest pain, palpitations. 15:55 Respiratory: Negative for cough, shortness of breath, wheezing. 15:55 Abdomen/GI: Negative for abdominal pain, nausea, vomiting, and diarrhea. 15:55 MS/extremity: Positive for pain, swelling, tenderness, of the left knee, Negative for injury or acute deformity. 15:55 Skin: Negative for cellulitis, rash. 15:55 Neuro: Negative for altered mental status, headache, weakness. 15:55 All other systems are negative. Exam: 16:00 Constitutional: The patient appears in no acute distress, alert, awake, non-toxic, well cp developed, well nourished, obese. 16:00 Head/Face: Normocephalic, atraumatic. cp 16:00 Eyes: Periorbital structures: appear normal, Pupils: equal, round, and reactive to light and accomodation, Extraocular movements: intact throughout, Conjunctiva: injected, bilaterally, Sclera: no appreciated abnormality, Lids and lashes: appear normal, bilaterally. 16:00 ENT: External ear(s): are unremarkable, Ear canal(s): are normal, clear, TM's: dullness, bilaterally, Nose: is normal, Mouth: Lips: moist, Oral mucosa: pink and intact, moist, Posterior pharynx: Airway: no evidence of obstruction, patent. 16:00 Neck: ROM/movement: is normal, is supple, without pain, no range of motions limitations. 16:00 Chest/axilla: Inspection: normal. 16:00 Cardiovascular: Rate: normal. 16:00 Respiratory: the patient does not display signs of respiratory distress, Respirations: normal, no use of accessory muscles, no retractions. 16:00 Musculoskeletal/extremity: Extremities: grossly normal except: noted in the left knee: pain, swelling, tenderness, There is no evidence of decreased ROM, ROM: limited passive range of motion due to pain, in the left knee, Perfusion: the extremity is normally perfused throughout, tenderness noted to lateral collateral ligament with mild pain with Varus stress, no laxity and/or instability noted with varus and valgus stressing, anterior and posterior draw negative. 16:00 Skin: cellulitis, is not appreciated, no rash present. Vital Signs: 15:35 Weight 120.2 kg; Height 5 ft. 3 in. (160.02 cm); Pain 8/10; ld1 15:40 BP 162 / 107; Pulse 90; Resp 20; Temp 97.6; Pulse Ox 100% ; Pain 7/10; kb3 18:45 BP 158 / 95; Pulse 88; Resp 20; Pulse Ox 99% ; kb3 15:35 Body Mass Index 46.94 (120.20 kg, 160.02 cm) ld1 Visual Acuity: 17:37 Left Eye Visual acuity 20/25, Pupil size 4 mm, Normal, Brisk; Right Eye Visual acuity kb3 20/20, Pupil size 4 mm, Normal, Brisk; Both Eyes Visual acuity 20/15; With Lenses; Procedures: 18:20 Splinting: Splint applied to left knee using knee immobilizer, applied by nurse. cp Examined by me, post splint application: neurovascular intact, Patient tolerated well. MDM: 15:33 Patient medically screened. cp 16:00 Differential diagnosis: closed fracture, tendonitis, DVT, septic joint. cp 18:04 Data reviewed: vital signs, nurses notes, radiologic studies, plain films, ultrasound. cp 18:04 Counseling: I had a detailed discussion with the patient and/or guardian regarding: the cp historical points, exam findings, and any diagnostic results supporting the discharge/admit diagnosis, radiology results, the need for outpatient follow up, a orthopedic surgeon, to return to the emergency department if symptoms worsen or persist or if there are any questions or concerns that arise at home. Response to treatment: the patient's symptoms have mildly improved after treatment, and as a result, I will discharge patient. 18:04 Test interpretation: by ED physician or midlevel provider: plain radiologic studies. 04/12 15:45 Order name: XRAY Knee LEFT 3 view; Complete Time: 17:59 04/12 18:00 Interpretation: Report reviewed. 04/12 15:45 Order name: US Extremity Venous Unilateral Ltd; Complete Time: 16:58 04/12 16:58 Interpretation: Report reviewed. 04/12 15:45 Order name: Visual Acuity; Complete Time: 17:37 cp 04/12 18:00 Order name: Crutches; Complete Time: 18:16 cp 04/12 18:00 Order name: Keenan wrap-joint; Complete Time: 18:16 cp Administered Medications: 15:48 Drug: Ibuprofen 800 mg Route: PO; kb3 17:00 Follow up: Response: No adverse reaction; Pain is decreased kb3 15:48 Drug: Tylenol 1000 mg Route: PO; kb3 17:00 Follow up: Response: No adverse reaction; Pain is decreased kb3 18:20 Drug: Gentamicin Drops 0.3 % 1 drops Route: Ophthalmic; Site: both eyes; kb3 18:30 Follow up: Response: No adverse reaction kb3 Disposition: 04/13 11:08 Co-signature as Attending Physician, Chi Thompson MD I agree with the assessment and rt plan of care. Disposition Summary: 04/12/22 18:04 Discharge Ordered Location: Home cp Problem: new cp Symptoms: have improved cp Condition: Stable cp Diagnosis - Pain in left knee cp - Unspecified acute conjunctivitis, bilateral cp Followup: cp - With: Donald Angelo MD - When: 1 week - Reason: knee pain Discharge Instructions: - Discharge Summary Sheet cp - Elastic Bandage and RICE Therapy cp - Bacterial Conjunctivitis, Adult cp - How to Use Eye Drops and Eye Ointments cp - How to Use a Knee Brace cp - Acute Knee Pain, Adult cp Forms: - Medication Reconciliation Form cp - Thank You Letter cp - Antibiotic Education cp - Prescription Opioid Use cp Prescriptions: - Gentamicin 0.3 % Ophthalmic Drops - instill 1 drop by OPHTHALMIC route every 4 hours for 7 days; 1 bottle; Refills: cp 0, Product Selection Permitted - Diclofenac Sodium 75 mg Oral Tablet Sustained Release - take 1 tablet by ORAL route 2 times per day; 30 tablet; Refills: 0, Product cp Selection Permitted Signatures: Dispatcher [employer] EDMS Deshaun Perez PA PA cp Nery Melgoza, RN RN ld1 Stephany Rodriguez RN RN kb3 Chi Thompson MD MD rt Corrections: (The following items were deleted from the chart) 16:55 04/12 16:00 Musculoskeletal/extremity: Extremities: grossly normal except: noted in the cp left knee: pain, swelling, tenderness, There is no evidence of decreased ROM, ROM: limited passive range of motion due to pain, in the left knee, Perfusion: the extremity is normally perfused throughout, cp 04/13 16:57 04/12 18:20 Splinting: Splint applied to right knee using knee immobilizer, applied by cp nurse. Examined by me, post splint application: neurovascular intact, Patient tolerated well, cp
[2022-04-12] MEDS ORDERED: GENTAMICIN 0.3% OPTH DROP 5ML ONE (18:13)
[2022-04-12 19:04] VITALS: TEMP 97.6
[2022-04-12 19:05] VITALS: BP 158/95; O2SAT 99
== END 2022-04-12 18:50 | disposition home or self-care (01) ==
LOC: ER 15:21
DX: M25.562 Pain in left knee (principal); H10.33 Unspecified acute conjunctivitis, bilateral; F17.210 Nicotine dependence, cigarettes, uncomplicated; Z91.048 Other nonmedicinal substance allergy status
CPT/HCPCS: 93971; 99283

== ENCOUNTER 2023-04-27 07:46 | Emergency (ER) | payer OTHER ==
--- OUTSIDE RECORDS SUMMARY | 2023-04-27 07:49 | XMS REPORT | Continuity of Care Document ---
Author Name Unknown Address [address] [place] [address] [facility] thconnect Address [address] [place] [address] Care Team Providers Care Litigation Assistant Name Role Phone LETICIA BERNARD Attending Clinician Unavailable NATHANIEL COLE Attending Clinician Unavailable DONNY STANLEY Attending Clinician Un available SOURAV BARRERA Attending Clinician Unavailable BRODY MARCIAL Attending Clinician Unavailable [id number] Attending Clinician Unavailable Payers Payer Name Policy Type Policy Number Effective Date Expirati on Date Source [employer]: [employer]HE[employer] AP[employer]ENTICE 94 ON 9 [id number] 2022 00:00:00 Problems Condition Name Condition Details Condition Category Status Onset Date Resolution Date Last Treatment Date Treating Clinician Comments Source Postoperat zachary hypothyroi dism Postoperat zachary hypothyroi dism Disease Active 2022-05 00:00: 00 Kellen cervantes Primary hypertensi on Primary hypertensi on Disease Active 2022-05 00:00: 00 Kellen cervantes Current moderate episode of major depressive disorder without prior episode Current moderate episode of major depressive disorder without prior episode Disease Active 2022-05 00:00: 00 Kellen cervantes Allergies Allergies Disease Active 2022-05 00:00: 00 Kellen cervantes Severe obesity (BMI >= 40) Severe obesity (BMI >= 40) Disease Active 2022-05 00:00: 00 Kellen cervantes Allergies, Adverse Reactions, Alerts Allergy Name Allergy Type Status Severity Reaction(s) Onset Date Inactive Date Treating Clinician Comments Source Pollen Extract- Tree Extract Propensi ty to adverse reaction s Active Runny Nose 2022-05 00:00: 00 Kellen cervantes Iodide Propensi ty to adverse reaction s Active Swelling 11-03 00:00: 00 Kellen cervantes Social History Social Habit Start Date Stop Date Quantity Comments Source History of tobacco use Cigarette Smoker Kellen hong - External Sexual orientation K sadi Donovan - External Alcohol intake 2023-04-05 00:00:00 2023-04-05 00:00:00 Current drinker of alcohol (finding) Kellen Donovan - External History of Social function 2023-04-05 00:00:00 2023-04-05 00:00:00 Kellen Donovan - External Alcohol Comment 2023-04-05 00:00:00 2023-04-05 00:00:00 social Kellen Donovan - External Sex Ass[birth year] At 1970 00:00:00 1970 00:[birth year]:00 Kellen Garay Smoking Status Start Date Stop Date Source Smokes tobacco daily 2023-04-05 00:00:00 Kellen Garay Medications Ordered Medication Name Filled Medication Name Start Date Stop Date Current Medication? Ordering Clinician Indication Dosage Frequency Signature (SIG) Comments Components Source Sertraline HCl 25 MG oral Tablet 2022-05 00:00: 00 Yes [id number] 25mg Take 1 tablet (25 mg total) by mouth daily. Kellen cervantes FLUTICASONE PROPIONATE, NASAL, 50 MCG/ACT nasal Suspension 2022-05 00:00: 00 Yes [id number] 50ug Use 1 spray (50 mcg total) in each nostril daily. Kellen cervantes hydroCHLORO thiazide 12.5 MG oral Capsule 2022-05 00:00: 00 Yes [id number] 12.5mg Take 1 capsule (12.5 mg total) by mouth daily. Kellen cervantes Amlodipine Besylate (NORVASC) 5 MG oral Tablet 2022-05 00:00: 00 04-05 00:00 :00 No [id number] 5mg Take 1 tablet (5 mg total) by mouth daily. Kellen cervantes Vital Signs Vital Name Observation Time Observation Value Comments S ource Systolic blood pressure 2023-04-05 18:46:00 134 mm[Hg] Kellen Radford ld - External Diastolic blood pressure 2023-04-05 18:46:00 90 mm[Hg] Kellen Radford ld - External Heart rate 2023-04-05 18:46:00 79 /min Ritu Donovan - External Body temperature 2023-04-05 18:46:00 36.39 Yadi Kellen Donovan - External Respiratory rate 2023-04-05 18:46:00 15 /min Kellen Donovan - External Body height 2023-04-05 18:46:00 160 cm Bren Donovan - External Body weight 2023-04-05 18:46:00 125.646 kg Bren Donovan - External BMI 2023-04-05 18:46:00 49.07 kg/m2 Bren Belloold - External Encounters Start Date/Time End Date/Time Encounter Type Admission Type Attending [facility] Care Department Encounter ID Source 2023-08-23 15:45:00 2023-08-23 15:45:00 Outpatient LETICIA BERNARD [id number] Kellen Donovan 2023-07-12 08:40:00 2023-07-12 08:40:00 Outpatient NATHANIEL COLE [id number] Kellen Donovan 2023-06-14 08:45:00 2023-06-14 08:45:00 Outpatient DONNY STANLEY [id number] Kellen Donovan 2023-06-12 08:45:00 2023-06-12 08:45:00 Outpatient SOURAV BARRERA [id number] Kellen Donovan 2023-05-12 10:20:00 2023-05-12 10:20:00 Outpatient KELLEN SOTO [id number] Kellen Donovan 2023-05-03 11:00:00 2023-05-03 11:00:00 Outpatient BRODY MARCIAL [id number] Kellen Donovan 2023-04-05 13:45:00 2023-04-05 13:45:00 Outpatient LAB[facility] KELLEN SOTO [id number] Kellen Donovan 2023-04-05 13:00:00 2023-04-05 13:00:00 Outpatient BRODY MARCIAL [id number] Kellen Donovan
[2023-04-27 08:19] LABS: Absolute Lymphocytes (CBC) 2.1 K/uL (0.7-4.9); Hematocrit 43.7 % (36.0-45.0); Lymphocytes % 31.6 % (15.3-44.8); MPV 8.2 fL (7.6-11.3); Platelets 261 thou/uL (152-406); RBC Red Blood Cell Count 4.69 M/uL (3.86-4.86)
[2023-04-27] MEDS ORDERED: ONDANSETRON 4 MG/2 ML VIAL ONE (08:22)
[2023-04-27] MEDS ORDERED: NA CHLORIDE 0.9% 1,000 ML ONE (08:22)
[2023-04-27] MEDS ORDERED: HYDROMORPHONE HCL 1 MG/ML INJ ONE (08:22)
--- NOTE | 2023-04-27 08:35 | RAD REPORT ---
EXAM DESCRIPTION: CT - Abdomen Pelvis Wo Contrast - 04/27/2023 8:19 am CLINICAL HISTORY: Abdominal pain COMPARISON: None TECHNIQUE: Computed axial tomography of the abdomen and pelvis was obtained. IV and oral contrast we re not requested. All CT scans are performed using dose optimization technique as appropriate and may include automated exposure control or mA/KV adjustment according to patient size. FINDINGS: The evaluation of solid organs, vessels and bowel is limited secondary to the lack of con trast administration. The liver, spleen, pancreas, adrenals and right kidney are grossly normal. A 19 millimeter low-density mass left kidney nonspecific but probably a cyst. Follow-up renal ultraso und in 6 months recommended The appendix is normal. There is no evidence of diverticulitis. No adnexal mass Small umbilical hernia Multiple loop of ileum are mildly dilated and fluid-filled within the central lower abdomen and upper right pelvis. IMPRESSION: Multiple loops of ileum are mildly dilated and fluid-filled within the central lower abd omen and upper right pelvis. This most likely represents an enteritis. An early partial mechanical ob struction can have this appearance but is considered less likely. The patient's symptoms persist then a followup abdominal plain film series would be recommended
[2023-04-27 08:58] LABS: Albumin 3.3 g/dL (3.4-5.0); Bilirubin Total 0.3 mg/dL (0.2-1.0); Protein, Total 7.3 g/dL (6.4-8.2)
[2023-04-27 10:05] LABS: Specific Gravity 1.014 (1.005-1.030)
[2023-04-27 10:15] LABS: Specific Gravity 1.013 (1.005-1.030); Urine Bilirubin NEGATIVE (Negative); Urine Blood Negative (Negative); Urine Clarity Clear (Clear); Urine Color Light-Yellow (Yellow); Urine Glucose NEGATIVE (Negative); Urine Protein NEGATIVE (Negative); Urine Urobilinogen Normal (Normal); Urine pH 5.5 (5.0-7.0)
--- NOTE | 2023-04-27 10:22 | ER ---
Nurse's Notes [facility] Name: Nimo Kinsey Age: 52 yrs Sex: Female : 1970 Arrival Date: 04/27/2023 Time: 07:46 Bed 7 Private MD: Diagnosis: Enteritis, abdominal pain Presentation: 04/27 07:54 Chief complaint: Patient states: left sided abd pain since yesterday , +n/v/d. iw Coronavirus screen: At this time, the client does not indicate any symptoms associated with coronavirus-19. Ebola Screen: Patient negative for fever greater than or equal to 101.5 degrees Fahrenheit, and additional compatible Ebola Virus Disease symptoms Patient denies exposure to infectious person. Patient denies travel to an Ebola-affected area in the 21 days before illness onset. No symptoms or risks identified at this time. Initial Sepsis Screen: Does the patient meet any 2 criteria? No. Patient's initial sepsis screen is negative. Does the patient have a suspected source of infection? No. Patient's initial sepsis screen is negative. Risk Assessment: Do you want to hurt yourself or someone else? Patient reports no desire to harm self or others. Onset of symptoms was April 26, 2023. 07:54 Method Of Arrival: Ambulatory iw 07:54 Acuity: TIFFANY 3 iw Historical: - Allergies: 07:55 Iodine; iw - PMHx: 07:55 graves disease; iw - PSHx: 07:55 section; Tonsillectomy; iw Screenin:14 [facility] ED Fall Risk Assessment (Adult) History of falling in the last 3 months, kc6 including since admission No falls in past 3 months (0 pts) Confusion or Disorientation No (0 pts) Intoxicated or Sedated No (0 pts) Impaired Gait No (0 pts) Mobility Assist Device Used No (0 pt) Altered Elimination No (0 pt) Score/Fall Risk Level 0 - 2 = Low Risk. Abuse screen: Denies threats or abuse. Denies injuries from another. Nutritional screening: No deficits noted. Tuberculosis screening: No symptoms or risk factors identified. Assessment: 08:15 General: Appears in no apparent distress. uncomfortable, obese, well groomed, Behavior kc6 is cooperative, appropriate for age, crying. Pain: Complains of pain in left upper quadrant, right lower quadrant and left lower quadrant Pain currently is 8 out of 10 on a pain scale. Pain began 1 day ago. Is continuous, Noted to be crying, grimacing, guarding, moaning. Neuro: Level of Consciousness is awake, alert, obeys commands, Oriented to person, place, time, situation, Appropriate for age. Cardiovascular: Capillary refill < 3 seconds. Respiratory: Airway is patent Trachea midline Respiratory effort is even, unlabored, Respiratory pattern is regular, symmetrical. GI: Abdomen is round non-distended, obese, Bowel sounds present X 4 quads. Abd is soft X 4 quads Abdomen is tender to palpation in left upper quadrant, right lower quadrant and left lower quadrant Guarding noted Reports diarrhea, nausea, vomiting. : No signs and/or symptoms were reported regarding the genitourinary system. EENT: No signs and/or symptoms were reported regarding the EENT system. Derm: No signs and/or symptoms reported regarding the dermatologic system. Skin is intact, is healthy with good turgor, Skin is pink, warm \T\ dry. Musculoskeletal: No signs and/or symptoms reported regarding the musculoskeletal system. Circulation, motion, and sensation intact. Capillary refill < 3 seconds, Range of motion: intact in all extremities. 09:15 Reassessment: Patient appears in no apparent distress at this time. No changes from kc6 previously documented assessment. Patient and/or family updated on plan of care and expected duration. Pain level reassessed. Patient is alert, oriented x 3, equal unlabored respirations, skin warm/dry/pink. 10:15 Reassessment: Patient appears in no apparent distress at this time. No changes from kc6 previously documented assessment. Patient and/or family updated on plan of care and expected duration. Pain level reassessed. Patient is alert, oriented x 3, equal unlabored respirations, skin warm/dry/pink. 10:22 Reassessment: d/c pending IV antibiotic completion. kc 11:15 Reassessment: Patient appears in no apparent distress at this time. No changes from kc6 previously documented assessment. Patient and/or family updated on plan of care and expected duration. Pain level reassessed. Patient is alert, oriented x 3, equal unlabored respirations, skin warm/dry/pink. Vital Signs: 07:54 BP 160 / 105; Pulse 91; Resp 18; Temp 98.2; Pulse Ox 98% ; Weight 125.19 kg; Height 5 iw ft. 3 in. ; Pain 10/10; 09:52 BP 132 / 86; Pulse 90; Resp 17 S; Pulse Ox 100% on R/A; kc6 11:12 BP 126 / 83; Pulse 52; Resp 17 S; Pulse Ox 98% on R/A; kc6 07:54 Body Mass Index 48.89 (125.19 kg, 160.02 cm) iw 07:54 Pain Scale: Adult iw ED Course: 07:48 Patient arrived in ED. mr 07:55 Triage completed. iw 07:55 Arm band placed on. iw 07:56 Jennifer Lindsay, JANET is Primary Nurse. kc6 07:57 Rhoda Stark MD is Attending Physician. sp3 08:14 Inserted saline lock: 20 gauge in right antecubital area, using aseptic technique. kc6 Blood collected. Patient maintains SpO2 saturation greater than 95% on room air. 08:15 Patient has correct armband on for positive identification. Bed in low position. Call kc6 light in reach. Side rails up X 1. Client placed on continuous cardiac and pulse oximetry monitoring. NIBP monitoring applied. 08:20 Abdomen In Process Unspecified. EDMS 09:48 Test, Urine Sent. eh3 09:48 Urinalysis w/ reflexes Sent. eh3 11:57 No provider procedures requiring assistance completed. IV discontinued, intact, kc6 bleeding controlled, No redness/swelling at site. Pressure dressing applied. Administered Medications: 08:14 Drug: NS 0.9% IV 1000 ml IV at 1 bolus Per protocol; 1000 mL bolus Route: IV; Rate: 1 kc6 bolus; Site: right antecubital; 11:57 Follow up: Response: No adverse reaction; IV Status: Completed infusion; IV Intake: kc6 1000ml 08:14 Drug: Ondansetron IVP 4 mg IVP once; over 2 minutes Route: IVP; Site: right antecubital;kc6 09:52 Follow up: Response: No adverse reaction; Nausea is decreased; Vomiting decreased kc6 08:14 Drug: HYDROmorphone IVP 1 mg IVP once Route: IVP; Site: right antecubital; kc6 09:52 Follow up: Response: No adverse reaction; Pain is decreased; RASS: Alert and Calm (0) kc6 10:53 Drug: Ciprofloxacin IVPB 400 mg 200 ml IVPB once over 60 mins Volume: 200 ml; Route: kc6 IVPB; Infused Over: 60 mins; Site: right antecubital; 11:56 Follow up: Response: No adverse reaction; IV Status: Completed infusion; IV Intake: kc6 200ml 10:53 Drug: metroNIDAZOLE IVPB 500 mg 100 ml IVPB at 200 ml/hr once over 30 mins Volume: 100 kc6 ml; Route: IVPB; Rate: 200 ml/hr; Infused Over: 30 mins; Site: right antecubital; 11:56 Follow up: Response: No adverse reaction; IV Status: Completed infusion; IV Intake: kc6 100ml Medication: 11:57 VIS not applicable for this client. kc6 Intake: 11:56 IV: 200ml; Total: 200ml. kc6 11:56 IV: 100ml; Total: 300ml. kc6 11:57 IV: 1000ml; Total: 1300ml. kc6 Outcome: 10:22 Discharge ordered by . sp3 11:57 Discharged to home ambulatory, kc6 11:57 Condition: improved 11:57 Discharge instructions given to patient, Instructed on discharge instructions, follow up and referral plans. medication usage, Demonstrated understanding of instructions, follow-up care, medications, Prescriptions given X 2, 11:58 Patient left the ED. kc6 Signatures: Dispatcher [employer] ED NúñezCarmen hudson, Reg Reg Natalie Sierra, RN RN Rhoda Luis MD MD sp3 Hall, Erin, RN RN eh3 Campbell, Kaitlyn, RN RN kc6 Corrections: (The following items were deleted from the chart) 07:55 07:54 Pulse 91bpm; Resp 18bpm; Pulse Ox 98%; Temp 98.2F; 125.19 kg; Height 5 ft. 3 in.; iw BMI: 48.8; Pain 02/28, Adult; iw
--- NOTE | 2023-04-27 10:22 | EDPHYS ---
Physician Documentation [facility] Name: Nimo Kinsey Age: 52 yrs Sex: Female : 1970 Arrival Date: 04/27/2023 Time: 07:46 Bed 7 Private MD: ED Physician Rhoda Stark HPI: 04/27 08:12 This 52 yrs old Black Female presents to ER via Ambulatory with complaints of Abdominal sp3 Pain, Vomiting/Diarrhea. 08:12 52-year-old female with a history of prior Graves' disease, hypertension, depression sp3 now presents to the ED with chief complaint vomiting, diarrhea, diffuse abdominal pain that started yesterday evening. She denies any specific area of pain and states it is "everywhere". Only past surgical history is x 3. 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 Historical: - Allergies: 07:55 Iodine; iw - PMHx: 07:55 graves disease; iw - PSHx: 07:55 section; Tonsillectomy; iw ROS: 08:14 Constitutional: Negative for fever, chills, and weight loss, Eyes: Negative for injury, sp3 pain, redness, and discharge, ENT: Negative for injury, pain, and discharge, Neck: Negative for injury, pain, and swelling, Cardiovascular: Negative for chest pain, palpitations, and edema, Respiratory: Negative for shortness of breath, cough, wheezing, and pleuritic chest pain, Back: Negative for injury and pain, MS/Extremity: Negative for injury and deformity, Skin: Negative for injury, rash, and discoloration, Neuro: Negative for headache, weakness, numbness, tingling, and seizure, Psych: Negative for depression, anxiety, suicide ideation, homicidal ideation, and hallucinations, Allergy/Immunology: Negative for hives, rash, and allergies, Endocrine: Negative for neck swelling, polydipsia, polyuria, polyphagia, and marked weight changes, Hematologic/Lymphatic: Negative for swollen nodes, abnormal bleeding, and unusual bruising, 08:14 All other systems are negative, Exam: 08:13 Constitutional: This is a well developed, well nourished patient who is awake, alert, sp3 and in no acute distress. Head/Face: Normocephalic, atraumatic. Eyes: Pupils equal round and reactive to light, extra-ocular motions intact. Lids and lashes normal. Conjunctiva and sclera are non-icteric and not injected. Cornea within normal limits. Periorbital areas with no swelling, redness, or edema. ENT: Nares patent. No nasal discharge, no septal abnormalities noted. External auditory canals are clear. Oropharynx with no redness, swelling, or masses, exudates, or evidence of obstruction, uvula midline. Mucous membranes moist. Neck: Trachea midline, no thyromegaly or masses palpated, and no cervical lymphadenopathy. Supple, full range of motion without nuchal rigidity, or vertebral point tenderness. No Meningismus. Chest/axilla: Normal chest wall appearance and motion. Nontender with no deformity. No lesions are appreciated. Cardiovascular: Regular rate and rhythm with a normal S1 and S2. No gallops, murmurs, or rubs. Normal PMI, no JVD. No pulse deficits. Respiratory: Lungs have equal breath sounds bilaterally, clear to auscultation and percussion. No rales, rhonchi or wheezes noted. No increased work of breathing, no retractions or nasal flaring. Back: No spinal tenderness. No costovertebral tenderness. Full range of motion. Skin: Warm, dry with normal turgor. Normal color with no rashes, no lesions, and no evidence of cellulitis. MS/ Extremity: Pulses equal, no cyanosis. Neurovascular intact. Full, normal range of motion. Neuro: Awake and alert, GCS 15, oriented to person, place, time, and situation. Cranial nerves II-XII grossly intact. Motor strength 5/5 in all extremities. Sensory grossly intact. Cerebellar exam normal. Normal gait. Psych: Awake, alert, with orientation to person, place and time. Behavior, mood, and affect are within normal limits. 08:13 Abdomen/GI: Diffuse pain to palpation without peritoneal signs, rebound or guarding. Body habitus makes exam difficult., Vital Signs: 07:54 BP 160 / 105; Pulse 91; Resp 18; Temp 98.2; Pulse Ox 98% ; Weight 125.19 kg; Height 5 iw ft. 3 in. ; Pain 10/10; 09:52 BP 132 / 86; Pulse 90; Resp 17 S; Pulse Ox 100% on R/A; kc6 11:12 BP 126 / 83; Pulse 52; Resp 17 S; Pulse Ox 98% on R/A; kc6 07:54 Body Mass Index 48.89 (125.19 kg, 160.02 cm) iw 07:54 Pain Scale: Adult iw MDM: 07:57 Patient medically screened. sp3 08:14 Data reviewed: vital signs, nurses notes, old medical records, lab test result(s), sp3 radiologic studies. ED course: 52-year-old female with abdominal pain. Differential diagnosis includes gastroenteritis, biliary pathology, pancreatitis, gastritis, appendicitis, viral syndrome, among others. Workup will include CT scan of the abdomen pelvis noncontrast secondary to iodine allergy, laboratory values, urinalysis, Dilaudid and Zofran for pain control. Disposition pending workup and patient course.. 10:21 ED course: Laboratory values demonstrate no significant abnormality. CT demonstrates sp3 enteritis consistent with clinical presentation. Will administer IV Cipro and Flagyl and discharge patient home on same medications along with Bentyl. Follow-up with PCP as needed.. 04/27 08:03 Order name: CBC with Diff; Complete Time: 09:27 sp3 04/27 08:03 Order name: CMP; Complete Time: 10:19 sp3 04/27 08:03 Order name: Lipase; Complete Time: 10:19 sp3 04/27 08:03 Order name: Test, Urine; Complete Time: 10:19 sp3 04/27 08:03 Order name: Urinalysis w/ reflexes; Complete Time: 10:19 sp3 04/27 08:12 Order name: Abdomen ; Complete Time: 09:27 EDMS 12 08:03 Order name: IV Saline Lock; Complete Time: 08:06 sp3 04/27 08:03 Order name: Labs collected and sent; Complete Time: 08: sp3 04/27 08:25 Order name: Labs - recollect needed: recollect green top please; Complete Time: 08:31 em1 Administered Medications: 08:14 Drug: NS 0.9% IV 1000 ml IV at 1 bolus Per protocol; 1000 mL bolus Route: IV; Rate: 1 kc6 bolus; Site: right antecubital; 11:57 Follow up: Response: No adverse reaction; IV Status: Completed infusion; IV Intake: kc6 1000ml 08:14 Drug: Ondansetron IVP 4 mg IVP once; over 2 minutes Route: IVP; Site: right antecubital;kc6 09:52 Follow up: Response: No adverse reaction; Nausea is decreased; Vomiting decreased kc6 08:14 Drug: HYDROmorphone IVP 1 mg IVP once Route: IVP; Site: right antecubital; kc6 09:52 Follow up: Response: No adverse reaction; Pain is decreased; RASS: Alert and Calm (0) kc6 10:53 Drug: Ciprofloxacin IVPB 400 mg 200 ml IVPB once over 60 mins Volume: 200 ml; Route: kc6 IVPB; Infused Over: 60 mins; Site: right antecubital; 11:56 Follow up: Response: No adverse reaction; IV Status: Completed infusion; IV Intake: kc6 200ml 10:53 Drug: metroNIDAZOLE IVPB 500 mg 100 ml IVPB at 200 ml/hr once over 30 mins Volume: 100 kc6 ml; Route: IVPB; Rate: 200 ml/hr; Infused Over: 30 mins; Site: right antecubital; 11:56 Follow up: Response: No adverse reaction; IV Status: Completed infusion; IV Intake: kc6 100ml Disposition Summary: 04/27/23 10:22 Discharge Ordered Notes: Location: Home sp3 Condition: Stable sp3 Diagnosis - Enteritis, abdominal pain sp3 Followup: sp3 - With: Private Physician - When: Upon discharge from the Emergency Department - Reason: Continuance of care Discharge Instructions: - Discharge Summary Sheet sp3 - Diarrhea, Adult sp3 Forms: - Medication Reconciliation Form sp3 - Thank You Letter sp3 - Antibiotic Education sp3 - Prescription Opioid Use sp3 - Patient Portal Instructions sp3 - Leadership Thank You Letter sp3 Prescriptions: - Cipro 500 mg Oral tablet - take 1 tablet ORAL route every 12 hours for 7 days; 14 tablet; Refills: 0, sp3 Product Selection Permitted - Flagyl 500 mg Oral tablet - take 1 tablet ORAL route every 8 hours for 7 days; 21 tablet; Refills: 0, sp3 Product Selection Permitted Signatures: Dispatcher [employer] Natalie Diego RN RN iw Martinez, Eric em1 Rhoda Stark MD MD sp3 Jennifer Lindsay RN RN kc6 Corrections: (The following items were deleted from the chart) 08:12 08:04 Abdomen Pelvis W [id number] ordered. EDMS EDMS
[2023-04-27] MEDS ORDERED: CIPROFLOXACIN 400mg IV 400 MG/200 ML BAG IV ONE (11:00)
[2023-04-27] MEDS ORDERED: METRONIDAZOLE 500mg IVPB 500 MG/100 ML BAG IV ONE (11:00)
[2023-04-27 12:04] VITALS: TEMP 98.2
[2023-04-27 12:06] VITALS: BP 126/83; O2SAT 98
== END 2023-04-27 11:58 | disposition home or self-care (01) ==
LOC: ER 07:46
DX: K52.9 Noninfective gastroenteritis and colitis, unspecified (principal); Z91.048 Other nonmedicinal substance allergy status
CPT/HCPCS: 96365; 96361; 96368; 85025; 36415; 81025; 81003; 83690; 80053; 74176; 96375; 99285; J1170; J2405; J0744; J7030

== ENCOUNTER → 2023-08-16 | Emergency (ER) | payer OTHER, SELFPAY ==
[~2023-08-16] MED LIST: FAMOTIDINE 20 MG/2 ML VIAL IV ONE; FENTANYL CITR 100 MCG/2 ML ONE; KETOROLAC 30 MG/ML INJ ONE; MORPHINE 4 MG/ML SYR ONE; NA CHLORIDE 0.9% 1,000 ML ONE; ONDANSETRON 4 MG/2 ML VIAL ONE
--- OUTSIDE RECORDS SUMMARY | 2023-08-16 16:10 | XMS REPORT | Continuity of Care Document ---
Author Name Unknown Address [address] [place] [address] [facility] thconnect Address 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 ON 9 [id number] 2022 00:00:00 Problems Condition Name Condition Details [...] History of tobacco use Cigarette Smoker Kellen hogn - External Sexual orientation K sadi Donovan - External Alcohol intake 2023-04-05 00:00:00 2023-04-05 00:00:00 Current drinker of alcohol (finding) Kellen Donovan - External History of Social function 2023-04-05 00:00:00 2023-04-05 00:00:00 Kellen Quintanilla External Alcohol Comment 2023-04-05 00:00:00 2023-04-05 00:00:00 social Kellen Donovan - External Sex Ass[birth year] At 1970 00:00:00 1970 00:[birth year]:00 Kellen Garay Smoking Status Start Date Stop Date Source Smokes tobacco daily 2023-04-05 00:00:00 Kellen Garay Medications Ordered Medication Name Filled Medication Name Start Date Stop Date Current Medication? Ordering Clinician Indication Dosage Frequency Signature (SIG) Comments Components Source Albuterol Sulfate 2.5 MG/0.5ML inhalation Inhalant Solution 06-08 00:00: 00 Yes [id number] 2.5mg Q4H Take 2.5 mg by nebulizati on every 4 hours as needed for wheezing or shortness of breath. Kellen cervantes Albuterol-I pratropium 0.5-2.5 (3) MG/3ML inhalation Solution 06-08 00:00: 00 Yes [id number] 2.5mg Inhale 3 mL (2.5 mg total) into the lungs every 6 (six) hours. Kellen cervantes Guaifenesin (Mucinex) 600 MG oral Tablet 12 Hour Sustained Release 06-08 00:00: 00 Yes [id number] 1200mg Take 2 tablets (1,200 mg total) by mouth 2 times daily. Kellen cervantes Benzonatate (Tessalon Perles) 100 MG oral Capsule 06-08 00:00: 00 Yes [id number] 200mg [id number] 3D Take 2 capsules (200 mg total) by mouth 3 times daily as needed for cough. Kellen cervantes predniSONE (DELTASONE) 20 MG oral tablet 06-08 00:00: 00 06-19 05:59 :00 Yes [id number] Take 2 tablets (40 mg total) by mouth daily for 4 days, THEN 1.5 tablets (30 mg total) daily for 3 days, THEN 1 tablet (20 mg total) daily for 2 days, THEN 0.5 tablets (10 mg total) daily for 1 day. Kellen cervantes FLUTICASONE PROPIONATE, NASAL, 50 MCG/ACT nasal Suspension 06-05 00:00: 00 Yes [id number] 50ug Use 1 spray (50 mcg total) in each nostril daily. Kellen cervantes Sertraline HCl 25 MG oral Tablet 2022-05 00:00: 00 Yes [id number] 25mg TAKE 1 TABLET (25 MG TOTAL) BY MOUTH DAILY. Kellen cervantes hydroCHLORO thiazide 12.5 MG oral Capsule 2022-05 00:00: 00 Yes [id number] 12.5mg TAKE 1 CAPSULE BY MOUTH EVERY DAY Kellen cervantes Sertraline HCl 25 MG oral Tablet 2022-05 00:00: 00 Yes [id number] 25mg Take 1 tablet (25 mg total) by mouth daily. Kellen cervantes FLUTICASONE PROPIONATE, NASAL, 50 MCG/ACT nasal Suspension 2022-05 00:00: 00 Yes [id number] 50ug Use 1 spray (50 mcg total) in each nostril daily. Kellen cervantes hydroCHLORO thiazide 12.5 MG oral Capsule 2022-05 00:00: 00 Yes [id number] 12.5mg Take 1 capsule (12.5 mg total) by mouth daily. Kellen cervantes Amlodipine Besylate (NORVASC) 5 MG oral Tablet 2022-05 00:00: 00 04-05 00:00 :00 No [id number] 5mg Take 1 tablet (5 mg total) by mouth daily. Kellen cervantes Vital Signs Vital Name Observation Time Observation Value Comments S ource Systolic blood pressure 2023-04-05 18:46:00 134 mm[Hg] Kellen Radford ld - External Diastolic blood pressure 2023-04-05 18:46:00 90 mm[Hg] Kellen kat - External Heart rate 2023-04-05 18:46:00 79 /min Ritu Donovan - External Body temperature 2023-04-05 18:46:00 36.39 Yadi Kellen Donovan - External Respiratory rate 2023-04-05 18:46:00 15 /min Kellen Donovan - External Body height 2023-04-05 18:46:00 160 cm Bren Donovan - External Body weight 2023-04-05 18:46:00 125.646 kg Bren Donovan - External BMI 2023-04-05 18:46:00 49.07 kg/m2 Bren dye Seybold - External Encounters Start Date/Time End Date/Time Encounter Type Admission Type Attending [facility] Care Facility Care Department Encounter ID Source 2023-08-23 15:45:00 2023-08-23 15:45:00 Outpatient LETICIA BERNARD [id number] Kellen Donovan 2023-07-12 08:40:00 2023-07-12 08:40:00 Outpatient NATHANIEL COLE [id number] Kellen Donovan 2023-06-14 08:45:00 2023-06-14 08:45:00 Outpatient DONNY STANLEY KELLEN SOTO [id number] Kellen Seybgely 2023-06-12 08:45:00 2023-06-12 08:45:00 Outpatient SOURAV BARRERA KELLEN SOTO [id number] [facility] 2023-[facility]-08 13:15:00 2023-06-08 13:15:00 Outpatient KRISTINA SERRATO KELLEN SOTO [id number] [facility] 2023-06-05 00:00:00 2023-06-05 00:00:00 Outpatient BRODY MARCIAL [id number] [facility] 2023-06-01 00:00:00 2023-06-01 00:00:00 [facility]patient [facility] MARCIAL [id number] [facility] 2023-05-17 00:00:00 2023-05-17 00:00:00 [facility] MARCIAL [id number] [facility] 2023-05-12 10:20:00 2023-05-12 10:20:00 Outpatient KELLEN SOTO [id number] Kellen Seybgely 2023-05-03 11:00:00 2023-05-03 11:00:00 [facility]patient [facility] MARCIAL [id number] [facility] 2023-05-02 00:00:00 2023-05-02 00:00:00 Outpatient BRODY MARCIAL [id number] [facility] 2023-04-05 13:45:00 2023-04-05 13:45:00 Outpatient LAB90 KELLEN SOTO [id number] Kellen Seybgely 2023-04-05 13:00:00 2023-04-05 13:00:00 Outpatient BRODY MARCIAL [id number] [facility]ellen [facility]
--- NOTE | 2023-08-16 17:11 | RAD REPORT ---
EXAM DESCRIPTION: CT - Abdomen Pelvis Wo Contrast - 08/16/2023 4:52 pm CLINICAL HISTORY: Abdominal pain COMPARISON: 2022 TECHNIQUE: Computed axial tomography of the abdomen and pelvis was obtained. IV and oral contrast we re not requested. All CT scans are performed using dose optimization technique as appropriate and may include automated exposure control or mA/KV adjustment according to patient size. FINDINGS: The evaluation of solid organs, vessels and bowel is limited secondary to the lack of con trast administration. The liver, spleen, pancreas, adrenals and left kidney appear grossly normal. A 19 millimeter low-density low-density left renal mass unchanged The appendix is normal. There is no evidence of diverticulitis. No adnexal mass. Small umbilical hernia. Mild diastases rectus abdominis muscles IMPRESSION: 19 millimeter low-density mass left kidney unchanged probably a cyst. A followup renal u ltrasound in 6 months recommended for re-evaluation
[2023-08-16 17:27] LABS: Absolute Basophils 0.1 K/uL (0-0.5); Absolute Eosinophils 0.2 K/uL (0-0.5); Absolute Lymphocytes (CBC) 2.6 K/uL (0.7-4.9); Absolute Monocytes 0.5 K/uL (0.1-1.3); Absolute Neutrophil 3.2 K/uL (1.8-8.0); Basophils % 1.1 % (0-1.3); Eosinophils % 3.7 % (0-4.4); Hematocrit 40.7 % (36.0-45.0); Hemoglobin 13.8 g/dL (12.0-15.0); Lymphocytes % 38.8 % (15.3-44.8); MCH 31.8 pg (27.0-35.0); MCHC 33.9 g/dL (32.0-36.0); MCV 93.9 fL (80-100); MPV 8.1 fL (7.6-11.3); Monocytes % 7.4 % (3.3-12.3); Nucleated Red Blood Cells % 0.2 % (0-0); Platelets 256 thou/uL (152-406); RBC Red Blood Cell Count 4.34 M/uL (3.86-4.86); Red Cell Distribution Width 13.8 % (12.1-15.2)
[2023-08-16 17:33] LABS: Albumin 3.2 g/dL (3.4-5.0); Albumin/Globulin Ratio 0.8 (1.1-1.8); Anion Gap 5.9 mEq/L (5.0-15.0); Bilirubin Total 0.4 mg/dL (0.2-1.0); Potassium 3.9 mEq/L (3.5-5.1); Protein, Total 7.2 g/dL (6.4-8.2)
[2023-08-16 18:51] LABS: Specific Gravity 1.013 (1.005-1.030); Urine Bilirubin NEGATIVE (Negative); Urine Blood Negative (Negative); Urine Clarity Clear (Clear); Urine Color Light-Yellow (Yellow); Urine Glucose NEGATIVE (Negative); Urine Ketones NEGATIVE (Negative); Urine Microscopic Reflex YN NO UMIC; Urine Nitrite NEGATIVE (Negative); Urine Protein NEGATIVE (Negative); Urine Urobilinogen Normal (Normal); Urine pH 5.5 (5.0-7.0)
--- NOTE | 2023-08-16 19:07 | EDPHYS ---
Physician Documentation [facility] Name: Nimo Kinsey Age: 52 yrs Sex: Female : 1970 Arrival Date: 08/16/2023 Time: 16:07 Bed 6 Private MD: ED Physician Dale Stevens HPI: 08/15 16:55 This 52 yrs old Black Female presents to ER via Ambulatory with complaints of kb Nausea/Vomiting. 16:55 Pt is a 52 year old female who presents for n/v/d and diffuse abd pain that started kb yesterday. Denies fever. . 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 - Social history:: Smoking status: Patient denies any tobacco usage or history of. ROS: 16:55 Constitutional: As per HPI kb Exam: 16:55 Constitutional: This is a well developed, well nourished patient who is awake, alert, kb and in no acute distress. Head/Face: Normocephalic, atraumatic. ENT: Moist Mucous membranes Cardiovascular: Regular rate Respiratory: Respirations even and unlabored. No increased work of breathing. Talking in full sentences Skin: Warm, dry with normal turgor. Normal color. MS/ Extremity: Pulses equal, no cyanosis. Neurovascular intact. Full, normal range of motion. Neuro: Awake and alert, GCS 15, oriented to person, place, time, and situation. Moves all extremities. Normal gait. 16:55 Abdomen/GI: Inspection: obese Bowel sounds: normal, Palpation: soft, in all quadrants, moderate abdominal tenderness, in the left upper quadrant and left lower quadrant, Vital Signs: 16:16 BP 148 / 103; Pulse 73; Resp 18; Temp 97.9(TE); Pulse Ox 96% on R/A; Weight 119.29 kg; hb Height 5 ft. 3 in. ; Pain 8/10; 18:37 BP 125 / 81; Pulse 88; Resp 17; Pulse Ox 97% on R/A; Pain 6/10; nj1 18:37 Pain 6/10; nj1 19:44 BP 127 / 94; Pulse 87; Resp 18; Temp 97.3(TE); Pulse Ox 98% on R/A; Pain 9/10; tm6 20:03 BP 130 / 82; Pulse 92; Resp 18; Temp 97.3(TE); Pulse Ox 100% on R/A; Pain 2/10; tm6 16:16 Body Mass Index 46.59 (119.29 kg, 160.02 cm) hb 16:16 Pain Scale: Adult hb 18:37 Pain Scale: Adult nj1 18:37 Pain Scale: Adult nj1 19:44 Pain Scale: Adult tm6 20:03 Pain Scale: Adult tm6 MDM: 16:12 Patient medically screened. kb 16:56 Data reviewed: vital signs, nurses notes. kb 19:06 Differential diagnosis: Nonspecific abd pain, viral gastroenteritis, dehydration, kb abnormal electrolytes, diverticulitis. I considered the following discharge prescriptions or medication management in the emergency department Antibiotics: At this time antibiotics are not recommended. Counseling: I had a detailed discussion with the patient and/or guardian regarding the historical points, exam findings, and any diagnostic results supporting the discharge/admit diagnosis, lab results, radiology results, the need for outpatient follow up, a family practitioner, to return to the emergency department if symptoms worsen or persist or if there are any questions or concerns that arise at home. 08/15 16:15 Order name: CBC with Diff; Complete Time: 17:30 kb 08/15 16:15 Order name: CMP; Complete Time: 17:36 kb 08/15 16:15 Order name: Lipase; Complete Time: 17:36 kb 08/15 16:15 Order name: Urinalysis w/ reflexes; Complete Time: 18:52 kb 08/15 16:15 Order name: CT Abd/Pelvis - Without Contrast; Complete Time: 17:21 kb 08/15 16:15 Order name: IV Saline Lock; Complete Time: 17:16 kb 08/15 16:15 Order name: Labs collected and sent; Complete Time: 17:16 kb Administered Medications: 17:05 Drug: NS 0.9% IV 1000 ml IV at 1 bolus Per protocol; 1000 mL bolus Route: IV; Rate: 1 nj1 bolus; Site: left antecubital; 18:00 Follow up: Response: No adverse reaction; IV Status: Completed infusion; IV Intake: nj1 1000ml 17:05 Drug: Ondansetron IVP 4 mg IVP once; over 2 minutes Route: IVP; Site: left antecubital; nj1 18:00 Follow up: Response: No adverse reaction; Nausea is decreased nj1 17:07 Drug: Famotidine IVP 20 mg IVP once; dilute with 10 mL 0.9% NaCl; give over 2 minutes nj1 Route: IVP; Site: left antecubital; 18:00 Follow up: Response: No adverse reaction nj1 17:07 Not Given (Patient Refused): morphineor iv 4 mg IVP once over 4 mins kb 17:10 Drug: Ketorolac IVP 15 mg IVP once Route: IVP; Site: left antecubital; nj1 18:37 Follow up: Pain 6/10 Adult; Response: No adverse reaction; Pain is decreased nj1 19:40 Drug: fentaNYL (PF) IVP 50 mcg IVP once Route: IVP; Site: left antecubital; tm6 Disposition Summary: 08/16/23 19:07 Discharge Ordered Notes: Location: Home kb Condition: Stable kb Diagnosis - Nausea with vomiting, unspecified kb - Diarrhea, unspecified kb Followup: kb - With: Emergency Department - When: As needed - Reason: Worsening of condition Followup: kb - With: Private Physician - When: 2 - 3 days - Reason: Recheck today's complaints, Continuance of care, Re-evaluation by your physician Discharge Instructions: - Discharge Summary Sheet kb - Food Choices to Help Relieve Diarrhea, Adult kb - Nausea and Vomiting, Adult, [id number] kb - Diarrhea, Adult, [id number] kb Forms: - Medication Reconciliation Form kb - Thank You Letter kb - Antibiotic Education kb - Prescription Opioid Use kb - Patient Portal Instructions kb - Leadership Thank You Letter kb - Work release form tm6 Prescriptions: - Zofran 4 mg Oral tablet - take 1 tablet ORAL route every 6 hours As needed; 12 tablet; Refills: 0, kb Product Selection Permitted - dicyclomine 20 mg Oral tablet - take 1 tablet ORAL route 4 times per day As needed; 20 tablet; Refills: 0, kb Product Selection Permitted Signatures: Dispatcher [employer] Elvi Nixon FNP-C CORRESPONDENCE SCHOOL INSTRUCTOR-Ckb Mare Angeles, RN RN hb Ketty Lea, RN RN nj1 Ignacio Esteban, RN RN tm6
--- NOTE | 2023-08-16 19:07 | ER ---
Nurse's Notes [facility] Name: Nimo Kinsey Age: 52 yrs Sex: Female : 1970 Arrival Date: 08/16/2023 Time: 16:07 Bed 6 Private MD: Diagnosis: Nausea with vomiting, unspecified;Diarrhea, unspecified Presentation: 08/15 16:15 Chief complaint: N/V/D and diffuse abdominal pain since yesterday. Coronavirus screen: hb At this time, the client does not indicate any symptoms associated with coronavirus-19. Ebola Screen: No symptoms or risks identified at this time. Initial Sepsis Screen: Does the patient meet any 2 criteria? No. Patient's initial sepsis screen is negative. Does the patient have a suspected source of infection? No. Patient's initial sepsis screen is negative. Risk Assessment: Do you want to hurt yourself or someone else? Patient reports no desire to harm self or others. Onset of symptoms was August 15, 2023. 16:15 Method Of Arrival: Ambulatory hb 16:15 Acuity: TIFFANY 3 hb Triage Assessment: 16:24 General: Appears in no apparent distress. uncomfortable, Behavior is calm, cooperative. hb Pain: Pain currently is 8 out of 10 on a pain scale. Neuro: Level of Consciousness is awake, alert, obeys commands, Oriented to person, place, time, situation. Cardiovascular: Patient's skin is warm and dry. Respiratory: Respiratory effort is even, unlabored, Respiratory pattern is regular, symmetrical. GI: Reports lower abdominal pain, upper abdominal pain, diarrhea, nausea, vomiting. 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 - Social history:: Smoking status: Patient denies any tobacco usage or history of. Screenin:16 [facility] ED Fall Risk Assessment (Adult) History of falling in the last 3 months, nj1 including since admission No falls in past 3 months (0 pts) Confusion or Disorientation No (0 pts) Intoxicated or Sedated No (0 pts) Impaired Gait No (0 pts) Mobility Assist Device Used No (0 pt) Altered Elimination No (0 pt) Score/Fall Risk Level 0 - 2 = Low Risk Oriented to surroundings, Maintained a safe environment, Hourly rounding (assess needs \T\ fall precautionary measures) done. Abuse screen: Denies threats or abuse. Denies injuries from another. Nutritional screening: No deficits noted. Tuberculosis screening: No symptoms or risk factors identified. Assessment: 17:00 General: Appears in no apparent distress. uncomfortable, Behavior is calm, cooperative, nj1 appropriate for age. 17:00 Pain: Complains of pain in abdomen Pain currently is 8 out of 10 on a pain scale. nj1 Neuro: Level of Consciousness is awake, alert, obeys commands, Oriented to person, place, time, situation. Cardiovascular: Patient's skin is warm and dry. Respiratory: Airway is patent Respiratory effort is even, unlabored. GI: Reports upper abdominal pain, diarrhea, nausea, vomiting. 18:37 Reassessment: Patient appears in no apparent distress at this time. Patient and/or nj1 family updated on plan of care and expected duration. Pain level reassessed. Patient is alert, oriented x 3, equal unlabored respirations, skin warm/dry/pink. Patient states feeling better. Patient states symptoms have improved. 19:44 Reassessment: Patient and/or family updated on plan of care and expected duration. Pain tm6 level reassessed. Patient is alert, oriented x 3, equal unlabored respirations, skin warm/dry/pink. GI: Abdomen is round non-distended. 20:03 Reassessment: Patient and/or family updated on plan of care and expected duration. Pain tm6 level reassessed. Patient is alert, oriented x 3, equal unlabored respirations, skin warm/dry/pink. Vital Signs: 16:16 BP 148 / 103; Pulse 73; Resp 18; Temp 97.9(TE); Pulse Ox 96% on R/A; Weight 119.29 kg; hb Height 5 ft. 3 in. ; Pain 8/10; 18:37 BP 125 / 81; Pulse 88; Resp 17; Pulse Ox 97% on R/A; Pain 6/10; nj1 18:37 Pain 6/10; nj1 19:44 BP 127 / 94; Pulse 87; Resp 18; Temp 97.3(TE); Pulse Ox 98% on R/A; Pain 9/10; tm6 20:03 BP 130 / 82; Pulse 92; Resp 18; Temp 97.3(TE); Pulse Ox 100% on R/A; Pain 2/10; tm6 16:16 Body Mass Index 46.59 (119.29 kg, 160.02 cm) hb 16:16 Pain Scale: Adult hb 18:37 Pain Scale: Adult nj1 18:37 Pain Scale: Adult nj1 19:44 Pain Scale: Adult tm6 20:03 Pain Scale: Adult tm6 ED Course: 16:10 Patient arrived in ED. ae5 16:12 Elvi Peraza FNP-C is PHCP. kb 16:12 Dale Stevens MD is Attending Physician. kb 16:15 Triage completed. hb 16:24 Arm band placed on. hb 16:29 Ketty Lea, JANET is Primary Nurse. nj1 16:54 CT Abd/Pelvis - Without Contrast In Process Unspecified. EDMS 17:00 Patient has correct armband on for positive identification. Bed in low position. Call nj1 light in reach. Adult w/ patient. Provided Education on: call light, fall precautions. 19:05 Report given to Dion GONZALES and Ignacio GONZALES. nj1 20:04 No provider procedures requiring assistance completed. IV discontinued, intact, tm6 bleeding controlled, No redness/swelling at site. Pressure dressing applied. Administered Medications: 17:05 Drug: NS 0.9% IV 1000 ml IV at 1 bolus Per protocol; 1000 mL bolus Route: IV; Rate: 1 nj1 bolus; Site: left antecubital; 18:00 Follow up: Response: No adverse reaction; IV Status: Completed infusion; IV Intake: nj1 1000ml 17:05 Drug: Ondansetron IVP 4 mg IVP once; over 2 minutes Route: IVP; Site: left antecubital; nj1 18:00 Follow up: Response: No adverse reaction; Nausea is decreased nj1 17:07 Drug: Famotidine IVP 20 mg IVP once; dilute with 10 mL 0.9% NaCl; give over 2 minutes nj1 Route: IVP; Site: left antecubital; 18:00 Follow up: Response: No adverse reaction nj1 17:07 Not Given (Patient Refused): morphineor iv 4 mg IVP once over 4 mins kb 17:10 Drug: Ketorolac IVP 15 mg IVP once Route: IVP; Site: left antecubital; nj1 18:37 Follow up: Pain 6/10 Adult; Response: No adverse reaction; Pain is decreased nj1 19:40 Drug: fentaNYL (PF) IVP 50 mcg IVP once Route: IVP; Site: left antecubital; tm6 Medication: 20:04 VIS not applicable for this client. tm6 Intake: 18:00 IV: 1000ml; Total: 1000ml. nj1 Outcome: 19:07 Discharge ordered by MD. kb 20:04 Discharged to home ambulatory, with family, tm6 20:04 Condition: stable 20:04 Discharge instructions given to patient, family, Instructed on discharge instructions, follow up and referral plans. medication usage, Demonstrated understanding of instructions, follow-up care, medications, Prescriptions given X 2, 20:04 Patient left the ED. tm6 Signatures: Dispatcher [employer] EDMS Elvi Peraza, DENISE-C SCIENTIFIC SPECIALIST-CkMare Mccoy, RN RN Ketty Lea RN RN nj1 Ignacio Esteban RN RN tm6 Lisa Wise ae5
[2023-08-16 20:21] VITALS: BP 130/82; TEMP 97.3; O2SAT 100
== END ==
LOC: ER 16:07
DX: R11.2 Nausea with vomiting, unspecified (principal); R19.7 Diarrhea, unspecified
CPT/HCPCS: 36415; 74176; 80053; 81003; 83690; 85025; J2405; J3010; J7030